=== PATIENT | female | born 2000 | race Caucasian/White ===

== ENCOUNTER → 2022-11-20 | Outpatient (CLI) | payer BC, SELFPAY ==
[2022-11-20 13:05] LABS: Absolute Lymphocyte Count 1.84 X10^3/uL (0.83-4.51); Basophil# 0.04 X10^3/uL; Basophil% 0.4 % (0-1); Eosinophil# 0.55 X10^3/uL; Hematocrit 34.5 % (37-47); Hemoglobin 11.4 g/dL (12.0-15.0); Lymphocyte # 1.84 X10^3/ul (0.83-4.51); Mean Corpuscular Hgb 29.5 pg (27.0-32.0); Mean Corpuscular Volume 89.4 fL (81-99); Monocyte# 0.69 X10^3/uL; Monocyte% 7.5 % (0-10); NRBC Flagged by Analyzer 0 % (0-5); Neutrophil # 6.03 X10^3/uL (2.7-7.7); Neutrophil % 65.6 % (47-70); Platelet Count 223 K/mm3 (150-450); RBC Distribution Width CV 13.2 % (11.6-14.6); RBC Distribution Width SD 42.5 fl (35.1-43.9); Red Blood Count 3.86 M/mm3 (4.2-5.4); White Blood Count 9.2 K/mm3 (4.4-11.0)
== END | disposition home or self-care (01) ==
LOC: PAVLAB 12:54
PROVIDERS: Referring Provider Obstetrics & Gynecology; Visit Provider Obstetrics & Gynecology
DX: Z34.90 Encounter for supervision of normal pregnancy, unspecified, unspecified trimester (principal)
CPT/HCPCS: 36415; 85025

== ENCOUNTER → 2022-11-26 | Outpatient (CLI) | payer BC, SELFPAY ==
--- NOTE | 2022-11-26 12:43 | US_ITS ---
STUDY: SECOND AND THIRD TRIMESTER OBSTETRICAL ULTRASOUND REASON FOR EXAM: Female, 22 years old anatomy scan LMP: April 14, 2022. TECHNIQUE: Transabdominal TECHNICAL QUALITY: Adequate. PRIOR ULTRASOUND: None. FINDINGS: There is a single intrauterine fetus. The fetus is in a cephalic presentation. There is demonstrated cardiac activity with a heart rate of 135 bpm. There is a normal amniotic fluid volume. The largest amniotic fluid pocket measures 6.14 cm. The amniotic fluid index (RANID) is 23.1 cm. The placenta is anterior in location and is not low lying. There are Grade 3 placental changes. The cervix measures 4.3 cm in length. The adnexal regions are not visualized. BIOMETRY: BPD: 8.23 cm: 33 weeks, 1 days HC: 29.72 cm: 32 weeks, 6 days AC: 28.44 cm: 32 weeks, 3 days FL: 6.11 cm: 31 weeks, 5 days CI: 80% FL/BPD: 74% FL/HC: FL/AC: 21% HC/AC: 1.05 age by current US: 32 weeks, 3 days. FELIPE by current US: January 18, 2023. Estimated weight: 1974 grams, +/- 296 grams, 44 %. Age by LMP: 32 weeks, 2 days. FELIPE by LMP: January 19, 2023. ANATOMY: Gender: Female Cranium: Normal lateral ventricles. Normal choroid plexus. Normal cerebellum. Normal cisterna magna. Normal face, nose and lips. Chest: Normal 4-chamber heart. Abdomen/Pelvis: Normal diaphragm. Normal stomach. Normal abdominal wall. Normal cord insertion. Normal 3 vessel cord. Normal kidneys. Normal bladder. Spine: Normal cervical spine. Normal thoracic spine. Normal lumbar spine. Normal sacrum. Extremities: Normal bilateral upper extremities. Normal bilateral lower extremities. US/OB Anatomy Scan IMPRESSION: Single live uterine gestation with a mean gestational age of 32 weeks and 3 days. Electronically Signed: Jayson Rayn MD at 10:27 EST ,
== END | disposition home or self-care (01) ==
LOC: OPUS 12:41 → US 12:44
PROVIDERS: Visit Provider Obstetrics & Gynecology
DX: Z34.90 Encounter for supervision of normal pregnancy, unspecified, unspecified trimester (principal)
CPT/HCPCS: 76805

== ENCOUNTER → 2023-01-03 | Outpatient (CLI) | payer BC, SELFPAY | END | disposition home or self-care (01) | LOC: LABSPEC 15:01 | PROVIDERS: Referring Provider Obstetrics & Gynecology; Visit Provider Obstetrics & Gynecology | DX: Z34.90 Encounter for supervision of normal pregnancy, unspecified, unspecified trimester (principal) | CPT/HCPCS: 87081 ==

== ENCOUNTER 2023-01-26 05:10 | Inpatient (IN) | payer BC, SELFPAY ==
[2023-01-26] VITALS (19 sets, daily range): BP systolic 93–137; BP diastolic 45–91; PULSE 65–113; RESP 13–18; TEMP 36.1–36.9; O2SAT 90–99; BMI 35.4
--- NOTE | 2023-01-26 05:30 | HP.PCM.OB_ITS ---
HPI - General General Date of Admission: 01/26/23 HPI Narrative ZOIFA QUINTEROS, is a 22 y/o @ 41 weeks who presents to L&D via her mother, a sheet metal layout worker named Rosey Avila, after laboring at home for the last 48 hours. Her membranes ruptured at 7:30 am on 01/25/23 and she progressed to anterior lip and has been pushing on the anterior lip for 5 hours at home. She denies fevers or chills at this time. She last ate an apple sauce around dinner time last night. Her mother states that at rupture there was light meconium stained fluid. The patient saw Dr. Shaw 2 times during the for co-care Maternal Data Information FELIPE Calculator Estimated Delivery Date Method Current WG Current Estimate 01/19/23 LMP (Certain) 41w 0d Final FELIPE: 01/19/23 Final FELIPE Source: LMP Gestational age: 41 weeks 0 d PFSH PFSH Home Medications breast pump #1 ea 11/20/22 [Rx Last Taken Unknown] docosahexaenoic acid 200 mg capsule ( DHA) mg PO 11/20/22 [History Last Taken Unknown] Allergy/AdvReac Type Severity Reaction Status Date / Time No Known Allergies Allergy Verified 01/26/23 05:30 Surgical History H/O adenoidectomy Social History household members: spouse current occupational status: employed current occupational exposures/hazards: No sexually active: Yes Smoking Status: Never smoker alcohol intake: former substance use type: does not use seatbelt use: always do you feel safe at home: Yes additional social history: Spouse - Jesus ([email or web address]) History Elective abortions Hx Para 0 Spontaneous abortions Hx # Term Pregnancies Ectopic pregnancies Hx # Pregnancies Multiple births # of living children Visit Details Expected Delivery Route/Plan planning homebirth with Rosey Avila, declines lab testing, had anatomy US. gbs done. declined GCT. discussed BS testing OB Flowsheet Initial Weight: Not Recorded Date -?-?-?-?-?-?-?-?-?-?-?-?- EGA Weight BP Urine Prot -?-?-?-?-?-?-?-?-?-?-?-?- Glucose FHR FuHt Pres Dilation -?-?-?-?-?-?-?-?-?-?-?-?- Effaced St Visit Note 11/20/22 -?-?-?-?-?-?-?-?-?-?-?-?- 31w 3d 206 lb 6 oz 108/69 -?-?-?-?-?-?-?-?-?-?-?-?- 135 32 -?-?-?-?-?-?-?-?-?-?-?-?- SM- patient raul castro her mom Rosey Avila DEM for care, here to establish for cocare in case any additional help needed at delivery. patient had 15 week ultrasound at [facility] for gender and placenta is not previa. she 01/03/23 -?-?-?-?-?-?-?-?-?-?-?-?- 37w 5d 211 lb 2 oz 110/75 Nega tive -?-?-?-?-?-?-?-?-?--?-?-?- Negative 135 39 -?-?-?-?-?-?-?-?-?-?-?-?- Sm- no vb lof go od fm no regular ctx discussed home BS testing for evaluation ROS Constitutional Constitutional: Denies change in weight, fatigue, fever(s), headache(s), poor appetite or weakness Eyes Eyes: Denies blurry vision, change in vision, seeing flashes or spots in vision ENT HEENT: Denies dizziness, headache(s), loss taste/smell or sore throat Cardiovascular Cardiovascular: Denies chest pain, dizziness, dyspnea, irregular heart rhythm, leg edema, palpitations, rapid heart rate or vomiting Respiratory/Chest Respiratory/Chest: Denies chest tightness, cough, dyspnea or breast pain Gastrointestinal Gastrointestinal: Denies abdominal pain, anorexia, constipation, cramping, diarrhea, hemorrhoids, vomiting or weight changes Genitourinary Genitourinary: Denies dysuria, flank pain, genital lesions, genital pain, urinary frequency or urinary urgency Musculoskeletal Musculoskeletal: Denies back pain, difficulty walking, joint pain, limited range of motion, muscle cramps or numbness Integumentary Integumentary: Denies lesions or unusual bruising Neurologic Neurologic: Denies abnormal movements, abnormal speech, dizziness, numbness, seizure-like activity or syncope Psychiatric Psychiatric: Denies anxiety, behavioral changes, change in appetite, change in libido, cognitive impairment, confusion, depression, difficulty concentrating, hallucinations or suicidal thoughts Endocrine Endocrinology: Denies excessive sweating, polydipsia or polyuria Hematologic/Lymphatic Hematologic/Lymphatic: Denies easy bleeding, easy bruising or lymphadenopathy Allergic/Immunologic Allergic/Immunologic: Denies itchy eyes, lip swelling, seasonal rhinorrhea, rhinitis, throat swelling, tongue swelling, eczemia, wheezing or asthma Vital Signs Vital Signs Vital Signs: 01/26/23 05:26 01/26/23 05:26 01/26/23 05:26 Temperature Temperature Source Pulse Rate 110 H Blood Pressure 137/91 H BP Systolic 137 BP Diastolic 91 Pulse Ox 90 01/26/23 05:26 01/26/23 05:26 01/26/23 05:26 Temperature Temperature Source Temporal Pulse Rate 110 H Blood Pressure BP Systolic BP Diastolic Pulse Ox 96 01/26/23 05:26 Temperature 98.2 F Temperature Source Pulse Rate Blood Pressure BP Systolic BP Diastolic Pulse Ox Weight Weight: 206 lb 12.697 oz Body Mass Index (BMI) 35.4 Physical Exam Const alert, oriented x3, no apparent distress and healthy appearing General Appearance: cooperative; Negative for anxious HEENT normocephalic Face and Sinus: normal facial exam Eyes EOMs intact bilaterally and no scleral icterus General Eye: normal appearance of both eyes Neck full ROM and supple Lymph Lymphatic: no lymphadenopathy noted Chest Chest: abnormal inspection of the chest Resp normal respiratory effort Effort and Inspection: able to speak in complete sentences Cardio regular rate GI soft to palpation and non-tender Inspection: gravid Palpation: soft; Negative for tender external exam normal Narrative: Cx: 8 cm/80/+1 station. Back/Spine no CVA tenderness Extremity normal to inspection, full ROM and no clubbing, cyanosis or edema General Extremity: Negative for calf tenderness or edema Skin Lesions: no lesions Rashes: no rashes Psych mental status grossly normal Labs Labs Labs: Hct 34.5 % (37-47) L Hgb 11.4 g/dL (12.0-15.0) L Obstetrics US patient declined labs in the office. She collected her own blood sugars from 37 weeks and were normal at home Assessment & Plan (1) Obesity affecting : COMMENT: reocmmend GCTscreening, patient declined but will check BS at home. (2) : QUALIFIERS: Weeks of gestation: 37 weeks Qualified Code(s): Z3A.37 - 37 weeks gestation of COMMENT: kareemare with Rosey Avila- patients mother. planning home . cbc and home BS checks, declined rest of NOB labs. anatomy scan ordered. plan fu visit at 37-38 weeks with gbs. plan growth US at 41 weeks with twice weekly NSTs if prolonged and IOL at 42 if postdates. 11/27 Nl growth US EFW 1974gms +/-296gms 44%. (3) Supervision of normal : COMMENT: FELIPE 01/19/23 Jesus PLAN: Plan Patient presents IAL, plan at this point is to obtain labs and if no signs of distress will allow epidural + pitocin for a few hours but technically she has already met criteria for failure to progress at home and if any signs of chorioamnionitis present, will need to be sectioned. Pain management: plans epidural. GBS negative but will need abx for prolonged rupture of membranes . Management of any complications: none I have reviewed the [facility] and made any clinically relevant updates. addendum: white count 19, tracing is a category 2 for minimal variability and lac of decelerations after IV hydration and position change. She is having contractions q 2-3 minutes. Recommending primary section for failure to progress in labor.
[2023-01-26 05:34] LABS: Absolute Lymphocyte Count 1.75 X10^3/uL (0.83-4.51); Absolute Neutrophil Count 16.3 X10^3/uL (2.0-7.7); Basophil# 0.04 X10^3/uL; Basophil% 0.2 % (0-1); Eosinophil# 0.03 X10^3/uL; Eosinophils% 0.2 % (0-5); Hematocrit 37.2 % (37-47); Hemoglobin 12.3 g/dL (12.0-15.0); Lymphocyte # 1.75 X10^3/ul (0.83-4.51); Lymphocyte % 8.9 % (19-41); Mean Corp Hgb Conc 33.1 g/dL (32-36); Mean Corpuscular Hgb 28.1 pg (27.0-32.0); Mean Corpuscular Volume 84.9 fL (81-99); Mean Platelet Vol. 12.8 fl (6.2-12.0); Monocyte# 1.32 X10^3/uL; Monocyte% 6.7 % (0-10); NRBC Flagged by Analyzer 0 % (0-5); Neutrophil # 16.29 X10^3/uL (2.7-7.7); Platelet Count 225 K/mm3 (150-450); RBC Distribution Width CV 13.8 % (11.6-14.6); RBC Distribution Width SD 42.3 fl (35.1-43.9); Red Blood Count 4.38 M/mm3 (4.2-5.4); White Blood Count 19.6 K/mm3 (4.4-11.0)
[2023-01-26] MEDS: Sodium Citrate/Citric Acid 30 ML UDC PO (06:06)
[2023-01-26] MEDS: Acetaminophen 500 MG Tablet PO (06:06)
[2023-01-26] MEDS: Cefazolin 2 GM in 0.9% Normal Saline 100 ML IV (06:15)
--- NOTE | 2023-01-26 06:30 | PLAC_PTH ---
PATIENT: ZOFIA QUINTEROS LOC: [facility] U#:[id number] AGE/SX: 22/F ROOM: WP007 RE01/26/[address]: Dr. Ann-Marie Mckenzie DO : 2000 BED: 1 DIS: 01/27/2023 SPEC #: [id number] RECD: 01/26/23 08:56 STATUS: NATASHA EMILEE #: [id number] YUE: 01/26/23 06:[address]: Ann-Marie Mckenzie DEPT: SURGICAL PATHOLOGY RECD BY: Kathia Lawrence Tissues: Placenta, NOS Procedures: Surgery Specimen Level V HEADER OPERATION: Primary section PRE-OP DIAGNOSIS: Rupture of membranes TISSUE SUBMITTED: Placenta MICROSCOPIC DIAGNOSIS Placenta: Placental disc - third trimester placenta (601 gm). - Focal area of intraparenchymal hemorrhage (1.0 cm in greatest dimension). - Focal area of peripheral infarction and calcification (1.0 cm in greatest dimension). - Focal area of calcification maternal surface and also within the body of the placenta. - Increased intervillous and perivillous fibrin deposition. - Increased syncytial knots. Membranes ? pigment laden macrophages consistent with conium staining. - Focal mild acute chorioamnionitis. Umbilical cord - three blood vessels and no pathologic diagnosis. SJ:rg 01/29/2023 COMMENT Case has been reviewed in consultation with Dr. Grider who concurs with the above diagnosis. IDC:AM MICROSCOPIC DESCRIPTION Slides are reviewed. GROSS DESCRIPTION SPECIMEN: PLACENTA / CLINICAL INFORMATION: A. Weight: 3.62 kg B. Gestational Age: 41 weeks C. Sex: Female PLACENTAL WEIGHT (POST FIXATION): 601 gm PLACENTAL DIMENSIONS: 19.9 x 19.0 x 4.0 cm PLACENTAL SHAPE: Usual ovoid PLACENTAL WEIGHT FOR GESTATIONAL AGE: Within >99th percentile MEMBRANES ? Present. Detached fragments of membranes are also noted in the container. A. Insertion: Marginal B. Site of rupture from edge: Distance of rupture cannot be assessed due to fragmentation of membrane. C. Color of membrane: Reagan-green, mucoidy consistent with meconium staining. D. Abnormalities: None UMBILICAL CORD - Present A. Color: Reagan-mackey B. Insertion: Paracentral C. Length: 40.0 cm D. Diameter: 1.5 cm E. Number of vessels: Three F. Abnormalities: None PLACENTAL DISC - Present A. Color of surface: Reagan-mackey B. surface abnormalities: None C. Maternal cotyledons: Intact with minimal tears. Maternal surface shows increased punctate calcification. Focal area of calcification is also noted in the peripheral portion of the placenta. D. Attached retro placental clot: No clot E. Cut surface: Dark red and spongy F. Lesions: Sections reveal one indurated hemorrhagic lesion measuring 1.0 cm in greatest dimension. G. Separate clot: Absent SECTIONS SUBMITTED: 1. Membrane roll 2. Cord, maternal end, peripheral portion of placenta 3. Cord, end, peripheral portion of placenta 4. Placental disc, and maternal surfaces 5. Placental disc, and maternal surfaces 6. Placental disc, and maternal surfaces, lesion SJ:kathleen 01/28/2023 TC:5 CPT: 70767
--- NOTE | 2023-01-26 07:19 | EX.PCM.OBRPT ---
Assessment & Plan (1) Failure to progress in labor: (2) Obesity affecting : COMMENT: reocmmend GCTscreening, patient declined but will check BS at home. (3) : QUALIFIERS: Weeks of gestation: 37 weeks Qualified Code(s): Z3A.37 - 37 weeks gestation of COMMENT: cocare with Rosey Avila- patients mother. planning home . cbc and home BS checks, declined rest of NOB labs. anatomy scan ordered. plan fu visit at 37-38 weeks with gbs. plan growth US at 41 weeks with twice weekly NSTs if prolonged and IOL at 42 if postdates. 11/27 Nl growth US EFW 1974gms +/-296gms 44%. (4) Supervision of normal : COMMENT: FELIPE 01/19/23 Jesus Maternal Data Information FELIPE Calculator Estimated Delivery Date Method Current WG Current Estimate 01/19/23 LMP (Certain) 41w 0d Final FELIPE: 01/19/23 Final FELIPE Source: LMP Gestational age: 41 weeks 0 days Doctor Who Attended Delivery: Cristiane Driver Details Operative Information Date of Procedure: 01/26/23 Pre-Operative Diagnosis: @ 41 weeks, failure to progress, meconium fluid, prolonged rupture of membranes Post-Operative Diagnosis: @ 41 weeks, failure to progress, meconium fluid, prolonged rupture of membranes Classification: CARMELA Procedure Type: low transverse hide inspector and sorter #1: Erik Iyer Type of Anesthesia: Spinal Anesthesiologist: Shelly Chino Antibiotic Given: Ancef 2 grams IV x1 and Zithromax 500 mg/5 mL X1 Estimated Blood Loss: 400cc Findings Description of Procedure: Spinal anesthesia was placed without difficulty. Ayala catheter was placed. The patient was placed in the dorsal supine position with leftward tilt. Patient was prepped and draped in the normal sterile fashion. Pfannenstiel skin incision was made with the scalpel and carried through to the underlying layer of fascia with the scalpel. Fascia was nicked in the midline and the incision extended laterally. The rectus bellies were dissected off superiorly and inferiorly with out complication both sharply and bluntly. The peritoneum was entered digitally. The incision was stretched and a low transverse uterine incision was made with the scalpel. The infant's head was delivered atraumatically followed by the anterior and posterior shoulders without complication the rest of the delivered. The cord was clamped and cut and the was handed off to awaiting nurse. The placenta was delivered spontaneously immediately following and was noted to be intact and have a three-vessel cord. The uterus was exteriorized cleared of all clots and debris, and the incision was closed in a double layer closure using #1 Vicryl, followed y #1 Monocryl. The ovaries and fallopian tubes were noted to be within normal limits. The uterus was returned to the maternal abdomen and gutters were cleared of all clots and debris. The peritoneum was closed with 3-0 Monocryl in a running fashion. Gloves were changed prior to fascial closure. Fascia was closed with 0 PDS in a running fashion. Subcutaneous tissue was copiously irrigated and the skin was closed with 3-0 Monocryl in a subcuticular fashion. Mepilex dressing was applied without complication. Patient was taken to recovery in stable condition. It was discussed with the patient that based on the clinical information obtained during this encounter, combined with her history, at this time I would recommend repeat or for future deliveries if the next baby is smaller than the current baby if further pregnancies are desired. Presentation: Positive for Vertex Time of Membrane Ruptured: 7:30 am 01/25/23 Amniotic Fluid Description: Moderate meconium Placental Delivery Description: Manual Removal Placenta Disposition: Routine to Lab Specimen(s) Sent to Pathology: placenta Cord Vessel Description: 3 Vessels Cord Entanglement: Around neck x 1, loose Infant A Gender: Female (1 minute): 8 (5 minute): 9 Delayed Cord Clamping: Yes Complications Risks of Surgery Discussed w/Patient: Bleeding, Anesthesia Risks, Need for Future C-Sections and Injury to surrounding structure(s) including bowel and bladder Admit VTE Documentation VTE Present on Admission: No VTE Mechan Device Prophylaxis: SCD's VTE Pharm Prophylaxis Ordered: Yes Multi Select Codes Urinary/Genital Urinary/Genital CPT Codes: 49748 Delivery [facility]
--- NOTE | 2023-01-26 07:27 | DCINST_ITS ---
Discharge Instructions Diet Discharge Diet: No restrictions Activity Discharge Activity: May Not Drive (for 2 weeks or while taking narcotic pain medications.), May Shower and May Take a Tub Bath (in 7 days.) May resume sexual activity in: 4-6 weeks Weight Bearing Status: Full weight bearing Lifting Restrictions: 20 pounds Dressing / Incision Call your doctor if your incision/area has: Continuous Slow Oozing, Sudden Increased Bleeding, Increased Pain/ Swelling, Increased Redness and Foul Smelling Discharge Call your doctor if you observe: Fever of 101 or Higher and Using more than 1 pad per hour Suture Line Care: Avoid Pulling/Pushing and Avoid Pinching/Bending Cleanse incision/area with: Soap & Water and Keep Dressing Clean & Dry Follow Up Care Please Follow Up With: Ann-Marie Mckenzie DO When: Call [phone] to make an appointment for an incision check in 1-2 weeks. Test Results: Test results from this visit will be discussed in further detail at your follow- up appointment, if applicable. Discharge Plan Admission Admit Date/Time: 01/26/23 05:10 Attending Provider: Ann-Marie Mckenzie Discharge Orders/Prescriptions Prescriptions: No Action DHA 200 mg capsule PO (DME) breast pump Device See Rx Instructions .MEDSUPPLY Qty: 1 0RF Rx Instructions: As directed
[2023-01-26] MEDS: Oxytocin 15 Units/NS 250ml 15 UNITS/250 ML IV.SOLN 83 UNITS IV (07:35)
[2023-01-26] MEDS: Ketorolac 30 MG/ML Syringe IV ×3 (08:00→22:31)
[2023-01-26 08:55] LABS: HIV - WCH Non-Reactive (Nonreactive); Hepatitis B Surface Antigen Non-Reactive (Nonreactive); Hepatitis C Antibody Non-Reactive (Nonreactive); Rubella IgG Non-Reactive (Nonreactive); Syphilis Antibodies Non-reactive
--- NOTE | 2023-01-26 10:24 | NURSING ---
1015 upon this nurse entering the room- the infant was found to be sleeping in Cristobal arms while Patricio was sleeping; attempted to wake Patricio up and was unable to awaken him; was taken from his arms and placed in the crib beside the mothers bed and father never woke up; Mariel was awakened and we reviewed the safe sleep policy and she verbalized understanding;
[2023-01-26] MEDS: Lactated Ringers 1,000 ML 100 ML IV (10:54)
[2023-01-26] MEDS: Acetaminophen 500 MG Tablet 1000 MG PO ×2 (12:00→17:34)
[2023-01-26] MEDS: Enoxaparin 40 MG/0.4 ML Syringe SC (17:34)
[2023-01-26] MEDS: 0.9% Saline Lock 10 ML Syringe IV (22:31)
--- NOTE | 2023-01-26 23:03 | NURSING ---
pt diamond catheter was removed at 1410 approaching the 6 hour joe this RN tried to get pt to attempt to void. pt unable to void use brian bottle, running the water, etc. this RN suggested getting in the shower for a last attempt at stimulating pt to void. reports that she has voided in the shower and it came out in spurts. this RN will continue to encourage pt to void.
[2023-01-27] MEDS: Acetaminophen 500 MG Tablet 1000 MG PO ×2 (01:25→07:54)
[2023-01-27 04:17] VITALS: BP 100/50; PULSE 82; RESP 16; TEMP 36.4; O2SAT 97
--- NOTE | 2023-01-27 06:20 | PCM.PN.OB ---
Subjective Subjective Patient is laying in bed comfortably without complaints. She states that she slept on an off during the night. Lochia is mild and pain is minimal. She is struggling a bit with breast feeding the baby this am but asking to be discharged to home Objective Data Objective Data Vital Signs: Vital Signs Temp Pulse Resp BP Pulse Ox O2 Del Method 97.5 F L 82 16 100/50 L 97 Room Air 01/27/23 04:17 01/27/23 04:17 01/27/23 04:17 01/27/23 04:17 01/27/23 04:17 01/27/23 04:17 Oxygen Delivery Method Room Air Weight: 206 lb 12.697 oz Body Mass Index (BMI) 35.4 Intake & Output: Intake and Output for Last 24 Hours 01/25/23 01/26/23 01/27/23 23:59 23:59 23:59 Intake Total 1615 / 1615 Output Total 2105 / 2105 600 / 600 Balance -490 / -490 -600 / -600 Lab / Micro Data Result Diagrams: 01/26/23 05:20 Labs: Laboratory Results - last 24 hr 01/26/23 05:20: Syphilis Total Ab Non-reactive, Hep Bs Antigen Non-Reactive, Hepatitis C Antibody Non-Reactive, HIV 1&2 Antibody Non-Reactive, Rubella IgG Antibody Non-Reactive 01/26/23 05:20: Blood Type AB POSITIVE, Antibody Screen NEGATIVE ROS Constitutional Constitutional: Reports systems reviewed and no addt'l complaints, except as documented Cardiovascular Cardiovascular: Denies chest pain, dizziness, dyspnea or irregular heart rhythm Respiratory/Chest Respiratory/Chest: Denies cough, pain on inspiration or shortness of breath at rest Gastrointestinal Gastrointestinal: Denies abdominal pain, nausea or vomiting Genitourinary Genitourinary: Denies burning urination Musculoskeletal Musculoskeletal: Denies muscle cramps, muscle spasms or muscle weakness Neurologic Neurologic: Denies confusion, dizziness, headache(s) or lack of coordination Psychiatric Psychiatric: Denies anxiety, behavioral changes or depression Physical Exam HEENT normocephalic Resp normal respiratory effort and normal air movement GI soft to palpation, non-tender and non-distended Rectal Exam: other Other Details: Incision is clean, dry, and intact no CVA tenderness Extremity normal to inspection General Extremity: edema bilateral (trace ) Assessment & Plan (1) Status post section: PLAN: Plan s/p LTCS PPD # 1 1. routine post care 2. breast feeding- support given 3. rh positive 4. rubella immune 5. plan for dc to home later today
[2023-01-27 07:14] LABS: Hematocrit 30.4 % (37-47); Hemoglobin 9.9 g/dL (12.0-15.0); Mean Corp Hgb Conc 32.6 g/dL (32-36); Mean Corpuscular Hgb 28.6 pg (27.0-32.0); Mean Corpuscular Volume 87.9 fL (81-99); Mean Platelet Vol. 12.7 fl (6.2-12.0); Platelet Count 151 K/mm3 (150-450); RBC Distribution Width CV 13.9 % (11.6-14.6); RBC Distribution Width SD 44.5 fl (35.1-43.9); Red Blood Count 3.46 M/mm3 (4.2-5.4)
[2023-01-27 07:40] VITALS: BP 100/61; PULSE 77; RESP 16; TEMP 36.5; O2SAT 98
[2023-01-27] MEDS: Naproxen 500 MG Tablet PO (08:03)
[2023-01-27 20:13] LABS: Pathology Specimen OB SEE PATHOLOGY REPORT
== END 2023-01-27 11:05 | disposition home or self-care (01) | DRG 788 ==
PROVIDERS: Admitting Provider Obstetrics & Gynecology; Visit Provider Obstetrics & Gynecology
DX: O62.2 Other uterine inertia (principal); E66.8 Other obesity; O99.214 Obesity complicating childbirth; O48.0 Post-term pregnancy; O76 Abnormality in fetal heart rate and rhythm complicating labor and delivery; Z37.0 Single live birth; Z3A.41 41 weeks gestation of pregnancy; O77.0 Labor and delivery complicated by meconium in amniotic fluid; O42.92 Full-term premature rupture of membranes, unspecified as to length of time between rupture and onset of labor
CPT/HCPCS: 59025; 59050; 85025; 85027; 86703; 86762; 86780; 86803; 86850; 86900; 86901; 87340; 88307; 99221; 99252; J7120; A4216; G0378; G0463; J2405

== ENCOUNTER → 2023-01-28 | Day surgery (SDC) | payer BC, SELFPAY ==
--- NOTE | 2023-01-28 14:04 | SUR.PHASEI ---
PT SENT HOME WITH VERBAL TO ALTERNATE NAPROXEN AND TYLENOL OR EXCEDRIN, AND INSTRUCTED TO NOT ALTERNATE NAPROXEN AND IBUPROFEN SHE WAS DOING PREVIOUSLY. INSTRUCTED TO DRINK LOTS OF FLUIDS INCLUDING SOME WITH CAFFEINE IN THEM. PATIENT AND FAMILY VOICED UNDERSTANDING. INSTRUCTED TO CALL BACK IF ANY QUESTIONS. PT AMBULATED OUT THE DOOR, DENIED NEED FOR WHEELCHAIR.
== END | disposition home or self-care (01) ==
PROVIDERS: Referring Provider Anesthesiology; Visit Provider Anesthesiology
PROC: 3E0R3GC Introduction of Other Therapeutic Substance into Spinal Canal, Percutaneous Approach (ICD-10-PCS; CPT 62273; principal; 2023-01-28 13:00)
DX: G97.1 Other reaction to spinal and lumbar puncture (principal)

== ENCOUNTER → 2023-03-12 | Outpatient (CLI) | payer BC, SELFPAY ==
[2023-03-15 19:20] LABS: HPV Reflexed? NOT INDICATED
== END | disposition home or self-care (01) ==
PROVIDERS: Referring Provider Obstetrics & Gynecology; Visit Provider Obstetrics & Gynecology
DX: Z12.4 Encounter for screening for malignant neoplasm of cervix (principal)
CPT/HCPCS: 88175; G0145

== ENCOUNTER → 2025-03-23 | Outpatient (CLI) | payer BC, SELFPAY ==
[2025-03-23 17:01] LABS: Hematocrit 36.2 % (37-47); Hemoglobin 12.1 g/dL (12.0-15.0); Immature Granulocytes Count 0.040 X10^3/uL (0.0-0.0); Mean Corp Hgb Conc 33.4 g/dL (32-36); Mean Corpuscular Volume 88.9 fL (81-99); Mean Platelet Vol. 12.2 fl (6.2-12.0); NRBC Flagged by Analyzer 0 % (0-5); Platelet Count 254 K/mm3 (150-450); RBC Distribution Width CV 11.8 % (11.6-14.6); RBC Distribution Width SD 37.7 fl (35.1-43.9); Red Blood Count 4.07 M/mm3 (4.2-5.4); White Blood Count 9.4 K/mm3 (4.4-11.0)
[2025-03-23 17:37] LABS: HIV Nonreactive (Nonreactive); Hepatitis B Surface Antigen Nonreactive (Nonreactive); Hepatitis C Antibody Nonreactive (Nonreactive); Syphilis Antibodies Nonreactive (Nonreactive)
[2025-03-26 06:07] LABS: Chlamydia By Nucleic Acid AMP Negative (Negative); Gonococcus By Nucleic Acid AMP Negative (Negative)
== END | disposition home or self-care (01) ==
PROVIDERS: Referring Provider Obstetrics & Gynecology; Visit Provider Obstetrics & Gynecology
DX: O09.90 Supervision of high risk pregnancy, unspecified, unspecified trimester (principal); Z3A.00 Weeks of gestation of pregnancy not specified
CPT/HCPCS: 36415; 83036; 85025; 86703; 86762; 86780; 86803; 86850; 86900; 86901; 87077; 87086; 87088; 87340; 87491; 87591

== ENCOUNTER → 2025-08-16 | Outpatient (CLI) | payer BC, SELFPAY ==
[2025-08-16 14:26] LABS: Hematocrit 35.7 % (37-47); Hemoglobin 11.8 g/dL (12.0-15.0); Immature Granulocytes Count 0.080 X10^3/uL (0.0-0.0); Mean Corp Hgb Conc 33.1 g/dL (32-36); Mean Corpuscular Volume 88.6 fL (81-99); Mean Platelet Vol. 12.7 fl (6.2-12.0); NRBC Flagged by Analyzer 0 % (0-5); Platelet Count 194 K/mm3 (150-450); RBC Distribution Width CV 12.3 % (11.6-14.6); RBC Distribution Width SD 39.7 fl (35.1-43.9); Red Blood Count 4.03 M/mm3 (4.2-5.4); White Blood Count 8.5 K/mm3 (4.4-11.0)
[2025-08-16 14:58] LABS: HIV Nonreactive (Nonreactive); Syphilis Antibodies Nonreactive (Nonreactive)
--- OUTSIDE RECORDS SUMMARY | 2025-08-16 18:30 | XMS RPT_ITS | CCD ---
Author Organization [facility] Care Team Providers Care Sr. Manager Name Role Phone Unavailable Primary Care Provider Unavailabl e WENDIE WAGNER Referring Unavailable Galina Williamson DO Primary Care Pro vider GALINA WILLIAMSON Attending Windy vailable GALINA WILLIAMSON Primary Care Windy vailable GALINA WILLIAMSON Attending Windy vailable GALINA WILLIAMSON Primary Care Windy vailable GALINA WILLIAMSON Admitting Windy vailable GALINA WILLIAMSON Primary Care Windy vailable Care Physician, No Primary Primary Care Provider Unavailable Care Physician, No Primary Referring Provider Un available Dr. Celeste Shaw Attending Provider [phone] Care Physician, No Primary Primary Care Provider Unavailable Care Physician, No Primary Referring Provider Un available Dr. Celeste Shaw Attending Provider BETSY WILLIAMSON Primary Care Provider UnavailDr. Ann-Marie Betancourt Admit Provider Dr. Ann-Marie Mckenzie Attending Provider [phone] Dr. Ann-Marie Mckenzie Other Provider Day PLAZA, WILMER Durbin Attending Provider Galina Williamson DO Primary Care Pro vider Care Physician, No Primary Primary Care Provider Unavailable Care Physician, No Primary Referring Provider Un available Dr. Ann-Marie Mckenzie DO Attending Provider Dr. Ann-Marie Mckenzie DO Referring Provider Dr. Celeste Shaw MD Attending Provider ANN-MARIE ALSTON Attending Unavailab GALINA John Primary Care Unavailab le ANN-MARIE ALSTON Referring Unavailab GALINA John Primary Care Unavailab le ANN-MARIE ALSTON Referring Unavailab le ANN-MARIE ALSTON Attending Unavailab le Care Physician, No Primary Primary Care Physicia n Unavailable Lisa Bundy DO, Dr. Jacobsen Attending Physician Colin MCKEON, Dr. Alonso Attending Physician Care Physician, No Primary Referring Unava ilable Liana Modi Attending Unavailable Care Physician, No Primary Primary Care Unava ilable Care Physician, No Primary Referring Unava ilable Care Physician, No Primary Primary Care Unava ilable Carye VelAnn-Marie meadows Attending Unavailabl e Care Physician, No Primary Referring Unava ilable Care Physician, No Primary Primary Care Unava ilable Vande Veldori, Ann-Marie Attending Unavailabl e Lisa Bundy, Ann-Marie Referring Unavailabl e Care Physician, No Primary Primary Care Unava ilable Carye Veldori, Ann-Marie Attending Unavailabl Liana Spence Attending Unavailable Care Physician, No Primary Primary Care Unava ilable Care Physician, No Primary Referring Unava ilable Care Physician, No Primary Referring Unava ilable Liana Modi Attending Unavailable Care Physician, No Primary Primary Care Unava ilable Care Physician, No Primary Referring Unava ilable Care Physician, No Primary Primary Care Unava ilable Carye Niharika, Ann-Marie Attending Unavailabl e Care Physician, No Primary Referring Unava ilable Celeste Shaw Attending Unavailable Care Physician, No Primary Primary Care Unava ilable Medications Current Medications Medication Drug Class(es) Dates Sig (Normalized) Sig (Original) Breast Pump (5 sources) Start: 11-20-2022 Breast Pump Ac tive 0 .MEDSUPPLY November 20, 2022 1:00am As directed Start: 11-20-2022 Breast Pump Ac tive 0 .MEDSUPPLY November 20, 2022 12:00am As directed Calcium Citrate-Vitamin D3 1,000 mg-10 mcg /30 mL liquid (5 sources) Start: 03-22-2025 take 6 tablets by mouth once daily Calcium Citrate-Vitamin D3 1,000 mg-10 mcg /30 mL liquid Active mL PO March 22, 2025 12:00am takes 6 tabs daily (1600mg) daily Complies with drug therapy Start: 03-22-2025 take 6 tablets by mo [facility] once daily Calcium Citrate-Vitamin D3 1,000 mg-10 mcg /30 mL liquid Active mL PO March 22, 2025 12:00am takes 6 tabs daily (1600mg) daily cephalexin 500 mg oral capsule (1 source) Cephalosporin Antibacterial Start: 10-20-2021 End: 10-30-2021 take 1 capsule by mouth three times daily cephALEXin (KEFLEX) 500 MG capsule Indications: Eustachian tube dysfunction, right Take 1 (one) capsule (500 mg total) by mouth 3 (three) times a day for 10 days . 30 capsule 0 10/20/2021 10/30/2021 Active docosahexaenoic acid 200 mg oral capsule (10 sources) Start: 11-20-2022 Docosahexaenoic Acid ( Dha) 200 mg capsule Active mg PO November 20, 2022 1:00am Complies with drug therapy Magnesium (5 sources) Start: 03-22-2025 take 1 tablet by mouth once daily Magnesium 200 mg tablet Active 200 mg PO daily March 22, 2025 12:00am Complies with drug therapy Start: 03-22-2025 take 1 tablet by [facility] once daily Magnesium 200 mg tablet Active 200 mg PO daily March 22, 2025 12:00am pyridoxine hydrochloride 25 mg oral tablet (5 sources) Start: 03-22-2025 take 1 tablet by mouth once daily Pyridoxine (Vitamin B6) 25 mg tablet Active 25 mg PO daily March 22, 2025 12:00am Complies with drug therapy terbinafine 250 mg oral tablet (2 sources) Allylamine Antifungal Start: 12-26-2023 take 1 tablet by mouth once daily terbinafine HCL (LAMISIL) 250 mg tablet Indications: Onychomycosis Take 1 (one) tablet (250 mg total) by mouth daily . 30 tablet 2 12/26/2023 Active vancomycin 125 mg oral capsule (1 source) Glycopeptide Antibacterial Start: 01-11-2022 End: 01-25-2022 take 1 capsule by mouth four times daily vancomycin (VANCOCIN) 125 MG capsule Take 1 (one) capsule (125 mg total) by mouth 4 (four) times a day for 14 days . 56 capsule 0 01/11/2022 01/25/2022 Active Completed/Discontinued Medications Medication Drug Class(es) Dates Sig (Normalized) Sig (Original) acetaminophen 325 mg / oxyCODONE hydrochloride 5 mg oral tablet (8 sources) Opioid Agonist Start: 01-27-2023 End: 02-06-2023 take 1-2 tablets by mouth every four hours as needed for pain Oxycodone-Acetamin ophen (Percocet) 5-325 mg tablet Discontinued 1 {tbl} PO Q4H as needed for pain 10 7 0 January 27, 2023 February 06, 2023 10:30am Status post delivery History of uterine scar from previous surgery 1-2 tabs q 4 hrs as needed for pain Breast Pump device (5 sources) Start: 11-20-2022 End: 03-22-2025 Breast Pump device Discontinued 0 .MEDSUPPLY 1 0 November 20, 2022 1:00am March 22, 2025 2:04pm As directed Ethinyl Estradiol / norgestimate (2 sources) Progestin, Estrogen Start: 05-23-2021 End: 10-20-2021 take 1 tablet by mouth once daily norgestimate-ethin yl estradioL 0.25-35 mg-mcg per tablet Take 1 tablet by mouth daily . 0 05/23/2021 10/20/2021 Discontinued (Patient's Request) Start: 12-12-2020 take 1 tablet by mey th once daily norgestimate-ethinyl estradiol (ORTHO-CYCLEN, 28,) 0.25-35 MG-MCG per tablet Take 1 tablet by mouth daily 3 packet 3 12/12/2020 Active naproxen 500 mg oral tablet (8 sources) Nonsteroidal Anti-inflammatory Drug Start: 01-27-2023 End: 02-06-2023 take 1 tablet by mouth twice daily as needed for pain Naproxen 500 mg tablet Discontinued 500 mg PO TWICE A DAY as needed for pain 30 0 January 27, 2023 12:00am February 06, 2023 10:30am progesterone 50 mg/ml injectable solution (10 sources) Progesterone Start: 03-22-2025 End: 05-31-2025 Progesterone 50 mg/mL oil Discontinued 5 mg IM daily March 22, 2025 2:37pm May 31, 2025 11:25am unsure dosage- states she applies pump full of cream to thigh/ abdomen nightly Start: 03-22-2025 End: 03-22-2025 inject 5 mg by intramuscular injection once daily Progesterone 50 mg/mL oil Discontinued 5 mg IM daily March 22, 2025 12:00am March 22, 2025 2:41pm Problems Active Problems Problem Classification Problem Date Documented Da te Episodic/Chronic Disorders of teeth and jaw (17 sources) Loss of teeth due to extraction; Translations: [Partial loss of teeth, unspecified cause, unspecified class] Onset: 08-03-2025 03-22-2025 Episodic Comment on above: 2022 distress and abnormal forces of labor (11 sources) Failure to progress in labor; Translations: [Other uterine inertia] 01-26-2023 Episodic Mycoses (2 sources) Onychomycosis; Translations: [Tinea unguium] 12-26-2023 Episodic Other aftercare (1 source) Encounter for follow-up examination after completed treatment for conditions other than malignant neoplasm; Translations: [Follow-up examination, following surgery, unspecified] 02-06-2023 Episodic Other complications of (20 sources) Maternal obesity complicating , childbirth and the puerperium, antepartum; Translations: [Obesity complicating , unspecified trimester] 11-20-2022 Chronic Comment on above: reocmmend GCTscreeni ng, patient declined but will check BS at home. Other complications of (12 sources) Obesity complicating , unspecified trimester; Translations: [Obesity complicating , childbirth, or the puerperium, unspecified as to episode of care or not applicable] Onset: 08-03-2025 11-20-2022 Chronic Other complications of (16 sources) High risk ; Translations: [Supervision of high risk , unspecified, unspecified trimester] 03-22-2025 Episodic Comment on above: , FELIPE 09/25/25, PC Robyn Spouse Jesus PRR , FELIPE 09/25/25 , ROSIBEL Carlson Spouse Jesus Other complications of (1 source) Supervision of high risk , unspecified, unspecified trimester; Translations: [Supervision of high risk , unspecified, unspecified trimester] Onset: 08-03-2025 Episodic Other ear and sense organ disorders (2 sources) Otalgia; Translations: [Otalgia, right ear] Episodic Other female genital disorders (1 source) Abnormal uterine bleeding; Translations: [DUB (dysfunctional uterine bleeding)] Chronic Other gastrointestinal disorders (2 sources) Diarrhea; Translations: [Diarrhea, unspecified] Episodic Other and delivery including normal (20 sources) Normal ; Translations: [Encounter for supervision of normal , unspecified, unspecified trimester] 11-20-2022 Episodic Comment on above: FELIPE 01/19/23 hus band Jesus cocare Pt, NIPT w ge nder/carrier- declines cocare with Rosey Abdi oy- patients mother. planning home . cbc and home BS checks, declined rest of NOB labs. anatomy scan ordered. plan fu visit at 37-38 weeks with gbs. plan growth US at 41 weeks with twice weekly NSTs if prolonged and IOL at 42 if postdates. 11/27 Nl growth US EFW 1974gms +/-296gms 44%. cocare Pt, NIPT w ge nder/carrier- declines. Anatomy nl. Otitis media and related conditions (3 sources) Dysfunction of right eustachian tube; Translations: [Other specified disorders of Eustachian tube, right ear] Episodic Residual codes; unclassified (6 sources) History of uterine scar from previous surgery; Translations: [Other postprocedural status] Onset: 08-03-2025 01-27-2023 Episodic Residual codes; unclassified (1 source) 32 weeks gestation of ; Translations: [32 weeks gestation of ] Onset: 08-03-2025 Episodic Residual codes; unclassified (1 source) 30 weeks gestation of ; Translations: [30 weeks gestation of ] Onset: 07-22-2025 Episodic Past or Other Problems Problem Classification Problem Date Documented Da te Episodic/Chronic Residual codes; unclassified (1 source) 17 weeks gestation of ; Translations: [17 weeks gestation of ] Onset: 04-21-2025 Episodic Results Test Name Value Interpretation Reference Range Facility Tin Whiz Machine Operator Office Visit Reporton 08-03-2025 Tin Whiz Machine Operator Office Visit Report [facility] [address], [address] [place] [address] OFFICE VISIT Date of Service: 08/03/25 MR#: [id number] Acct: [id number] Name: MARIEL QUINTEROS Rep #: [id number] : 2000 Provider: LEO Quiñonez ams Age/Sex: 24/F Location: [facility] Status: Signed Intake Vital Signs 07/08/25 13:57 07/22/25 15:12 08/03/25 15:20 08/03/25 15:21 Height 5 ft 4 in 5 ft 4 in 5 ft 4 in 5 ft 4 in Weight: 215 lb 212 lb BMI 36.8 36.3 BP 96/62 112/69 Intake Visit Reasons: 32wk3d ob Sandwich Artist Required: No Is patient in pain?: No Allergies No Known Allergies Allergy (Verified 08/03/25 15:19) Medications ???Medication ???Instructions ???Recorded ???Confirmed ???Type docosahexaenoic acid 200 mg mg PO 11/20/22 08/03/25 History capsule ( DHA) calcium 1,000 mg (citrate)-vit D3 ml PO 03/22/25 08/03/25 History 10 mcg (400 unit)/30 mL oral liquid magnesium 200 mg tablet 200 mg PO QDAY 03/22/25 08/03/25 H istory pyridoxine (vitamin B6) 25 mg 25 mg PO QDAY 03/22/25 08/03/25 Hi story tablet Last Menstrual Period: 09/25/25 Zika: Zika virus screening: Negative : No PFSH PFSH Surgical History H/O adenoidectomy Social History adopted: No household members: spouse and children housing: house number of children: 1 current occupational status: employed 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[employer] current occupational exposures/hazards: No pets and animals: Yes pets and animals: dog(s) history of recent travel: No sexually active: Yes Smoking Status: Never smoker alcohol intake: former details: not while substance use type: does not use caffeine: Yes Type: coffee what type of physical activity do you participate in: walking frequency: 3-4 times per week oj/congregational: [employer]ian seatbelt use: always do you feel safe at home: Yes additional social history: 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 Date Name GA/Weeks Outcome Route Bth Weight Infant Gen Labor Lgth Anesthesia Del Locatn Provider FOB 01/26/23 Robyn 41 live - full term 8lbs 5oz Female 48hrs @ home, 5hrs pushing spinal [facility] Jesus Delivery Date: 01/26/23 Last Updated by: Violeta Chávez laboring at home for 48 hrs. pushed x 5 hours HPI 32wk3d ob Details: MARIEL QUINTEROS is a 24 year old who presents for routine OB visit. OB Visit FELIPE Calculator Estimated Delivery Date Method Current WG Current Estimate 09/25/25 LMP (Certain) 32w 3d Expected Delivery Route/Plan desires TOLAC- patient having cocare with Rosey Avila for visits, epxlained that if she is planning a she needs to plan to have a hospital with us. we do not reocmmend or approve a home this is not considered a safe venue especially because she is 90 minutes away from our hospital and she has a lower chance of a successful TOLAC. I discussed the risks of permanent neurologic injury, hemorrhage, hysterectomy, and loss of life. patient to decide if she wishes to continue cocare patient counseled regarding risks/benefits of trial of labor versus repeat . ACOG/uptodate education given to patient. 45 % likelihood of success per calculator, but may be as low as 10% becuase she was complete an pushed for five hours with no success. TOLAC consent form signed: [] Specific Issue/Plans Covid status: [] Flu vaccine: [] Tdap vaccine: [] Rhogam: [] LARC form signed: [] Problem list reviewed and updated with the most current plan of care details and appropriate orders placed. Relevant counseling for the gestational age provided. Continue routine care and follow up unless otherwise noted in visit notes/problem list details Initial Weight: Not Recorded Date -???-???-???-???-??? -???-???-???-???-??? -???-???- EGA Weight BP Urine Prot -???-???-???-???-??? -???-???-???-???-??? -???-???- Glucose FHR FuHt Pres Dilation -???-???-???-???-??? -???-???-???-???-??? -???-???- Effaced St Visit Note 03/23/25 -???-???-???-???-??? -???-???-???-???-??? -???-???- 13w 3d 205 lb 110/69 -???-???-???-???-??? -???-???-???-???-??? -???-???- 155 -???-???-???-???-??? -???-???-???-???-??? -???-???- JV- CRL cons istent with LMP. pt was a primary section- labored at home and came in after pushing for 5 hours and thick mec. Wants to . 04/21/25 -???-???-???-???-??? -???-???-???-???-??? -???-???- 17w 4d 204 lb 2 (more content not included)... Normal [facility] Tin Whiz Machine Operator Office Visit Reporton 07-22-2025 Tin Whiz Machine Operator Office Visit Report [facility] [address], [address] [place] [address] OFFICE VISIT Date of Service: 07/22/25 MR#: [id number] Acct: [id number] Name: MARIEL QUINTEROS Rep #: [id number] : 2000 Provider: LEO Quiñonez ams Age/Sex: 24/F Location: [facility] Status: Signed Intake Vital Signs 07/08/25 13:57 07/22/25 15:12 Height 5 ft 4 in 5 ft 4 in Weight: 215 lb BMI 36.8 BP 96/62 Intake Visit Reasons: 30wk ob *co-care Chief Complaint: 30wk OB Sandwich Artist Required: No Is patient in pain?: No Allergies No Known Allergies Allergy (Verified 07/22/25 15:13) Medications ???Medication ???Instructions ???Recorded ???Confirmed ???Type docosahexaenoic acid 200 mg mg PO 11/20/22 07/22/25 History capsule ( DHA) calcium 1,000 mg (citrate)-vit D3 ml PO 03/22/25 07/22/25 History 10 mcg (400 unit)/30 mL oral liquid magnesium 200 mg tablet 200 mg PO QDAY 03/22/25 07/22/25 H istory pyridoxine (vitamin B6) 25 mg 25 mg PO QDAY 03/22/25 07/22/25 Hi story tablet Last Menstrual Period: 09/25/25 : No Have you fallen in the past year?: No PFSH PFSH Surgical History H/O adenoidectomy Social History adopted: No household members: spouse and children housing: house number of children: 1 current occupational status: employed 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[employer] current occupational exposures/hazards: No pets and animals: Yes pets and animals: dog(s) history of recent travel: No sexually active: Yes Smoking Status: Never smoker alcohol intake: former details: not while substance use type: does not use caffeine: Yes Type: coffee what type of physical activity do you participate in: walking frequency: 3-4 times per week oj/congregational: [employer]ian seatbelt use: always do you feel safe at home: Yes additional social history: 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 Date Name GA/Weeks Outcome Route Bth Weight Infant Gen Labor Lgth Anesthesia Del Locatn Provider FOB 01/26/23 Robyn 41 live - full term 8lbs 5oz Female 48hrs @ home, 5hrs pushing spinal [facility] Lee Delivery Date: 01/26/23 Last Updated by: Violeta Chávez laboring at home for 48 hrs. pushed x 5 hours HPI 30wk ob *co-care Details: MARIEL QUINTEROS is a 24 year old who presents for routine OB visit. OB Visit FELIPE Calculator Estimated Delivery Date Method Current WG Current Estimate 09/25/25 LMP (Certain) 30w 5d Expected Delivery Route/Plan desires TOLAC- patient having cocare with Rosey Avila for visits, epxlained that if she is planning a she needs to plan to have a hospital with us. we do not reocmmend or approve a home this is not considered a safe venue especially because she is 90 minutes away from our hospital and she has a lower chance of a successful TOLAC. I discussed the risks of permanent neurologic injury, hemorrhage, hysterectomy, and loss of life. patient to decide if she wishes to continue cocare patient counseled regarding risks/benefits of trial of labor versus repeat . ACOG/uptodate education given to patient. 45 % likelihood of success per calculator, but may be as low as 10% becuase she was complete an pushed for five hours with no success. TOLAC consent form signed: [] Specific Issue/Plans Covid status: [] Flu vaccine: [] Tdap vaccine: [] Rhogam: [] LARC form signed: [] Problem list reviewed and updated with the most current plan of care details and appropriate orders placed. Relevant counseling for the gestational age provided. Continue routine care and follow up unless otherwise noted in visit notes/problem list details Initial Weight: Not Recorded Date -???-???-???-???-??? -???-???-???-???-??? -???-???- EGA Weight BP Urine Prot -???-???-???-???-??? -???-???-???-???-??? -???-???- Glucose FHR FuHt Pres Dilation -???-???-???-???-??? -???-???-???-???-??? -???-???- Effaced St Visit Note 03/23/25 -???-???-???-???-??? -???-???-???-???-??? -???-???- 13w 3d 205 lb 110/69 -???-???-???-???-??? -???-???-???-???-??? -???-???- 155 -???-???-???-???-??? -???-???-???-???-??? -???-???- JV- CRL cons istent with LMP. pt was a primary section- labored at home and came in after pushing for 5 hours and thick mec. Wants to . 04/21/25 -???-???-???-???-??? -???-???-???-???-??? -???-???- 17w 4d 204 lb 2 oz 117/75 Negative -???-???-???-???-? (more content not included)... Normal [facility] - Chemistry and C hemistry - challengeOrdered By: Ann-Marie Bundy on 07-08-2025 Glucose Ql (U) Negative [facility] - UrinalysisOrder ed By: Ann-Marie Bundy on 07-08-2025 Protein Ql (U) Negative [facility] Tin Whiz Machine Operator Office Visit Reporton 07-08-2025 Tin Whiz Machine Operator Office Visit Report [address], [address] [place] [address] OFFICE VISIT Date of Service: 07/08/25 MR#: [id number] Acct: [id number] Name: MARIEL QUINTEROS Rep #: [id number] : 2000 Provider: Dr. Ann-Marie Syed DO Age/Sex: 24/F [place] [facility] Status: Signed Intake Vital Signs 05/31/25 11:26 07/08/25 13:57 07/08/25 13:57 Height 5 ft 4 in 5 ft 4 in 5 ft 4 in Weight: 208 lb 7 oz BMI 35.7 BP 111/69 Intake Visit Reasons: 28 WK 5D OB *co-care *Moved from 06/28 per pt Sandwich Artist Required: No Is patient in pain?: No Allergies No Known Allergies Allergy (Verified 07/08/25 13:57) Medications ???Medication ???Instructions ???Recorded ???Confirmed ???Type docosahexaenoic acid 200 mg mg PO 11/20/22 07/08/25 History capsule ( DHA) calcium 1,000 mg (citrate)-vit D3 ml PO 03/22/25 07/08/25 History 10 mcg (400 unit)/30 mL oral liquid magnesium 200 mg tablet 200 mg PO QDAY 03/22/25 07/08/25 H istory pyridoxine (vitamin B6) 25 mg 25 mg PO QDAY 03/22/25 07/08/25 Hi story tablet Last Menstrual Period: 09/25/25 Zika: Zika virus screening: Negative : No PFSH PFSH Surgical History H/O adenoidectomy Social History adopted: No household members: spouse and children housing: house number of children: 1 current occupational status: employed 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[employer] current occupational exposures/hazards: No pets and animals: Yes pets and animals: dog(s) history of recent travel: No sexually active: Yes Smoking Status: Never smoker alcohol intake: former details: not while substance use type: does not use caffeine: Yes Type: coffee what type of physical activity do you participate in: walking frequency: 3-4 times per week oj/congregational: [employer] seatbelt use: always do you feel safe at home: Yes additional social history: 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 Date Name GA/Weeks Outcome Route Bth Weight Gen Labor Lgth Anesthesia Del Rodatn Provider FOB 01/26/23 Robyn 41 live - full term 8lbs 5oz Female 48hrs @ home, 5hrs pushing spinal [facility] Lee Delivery Date: 01/26/23 Last Updated by: Violeta Chávez laboring at home for 48 hrs. pushed x 5 hours HPI 28 WK 5D OB *co-care *Moved from 06/28 per pt Details: MARIEL QUINTEROS is a 24 year old who presents for routine OB visit. OB Visit FELIPE Calculator Estimated Delivery Date Method Current WG Current Estimate 09/25/25 LMP (Certain) 28w 5d Expected Delivery Route/Plan desires TOLAC- patient having cocare with Rosey Avila for visits, epxlained that if she is planning a she needs to plan to have a hospital with us. we do not reocmmend or approve a home this is not considered a safe venue especially because she is 90 minutes away from our hospital and she has a lower chance of a successful TOLAC. I discussed the risks of permanent neurologic injury, hemorrhage, hysterectomy, and loss of life. patient to decide if she wishes to continue cocare patient counseled regarding risks/benefits of trial of labor versus repeat . ACOG/uptodate education given to patient. 45 % likelihood of success per calculator, but may be as low as 10% becuase she was complete an pushed for five hours with no success. TOLAC consent form signed: [] Specific Issue/Plans Covid status: [] Flu vaccine: [] Tdap vaccine: [] Rhogam: [] LARC form signed: [] Problem list reviewed and updated with the most current plan of care details and appropriate orders placed. Relevant counseling for the gestational age provided. Continue routine care and follow up unless otherwise noted in visit notes/problem list details Initial Weight: Not Recorded Date -???-???-???-???-??? -???-???-???-???-??? -???-???- EGA Weight BP Urine Prot -???-???-???-???-??? -???-???-???-???-??? -???-???- Glucose FHR FuHt Pres Dilation -???-???-???-???-??? -???-???-???-???-??? -???-???- Effaced St Visit Note 03/23/25 -???-???-???-???-??? -???-???-???-???-??? -???-???- 13w 3d 205 lb 110/69 -???-???-???-???-??? -???-???-???-???-??? -???-???- 155 -???-???-???-???-??? -???-???-???-???-??? -???-???- JV- CRL cons istent with LMP. pt was a primary section- labored at home and came in after pushing for 5 hours and thick mec. Wants to . 04/21/25 -???-???-???-???-??? -???-??? (more content not included)... 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 Celeste cameron MD Age/Sex: 24/F [place] [facility] [place]: Signed Intake Vital Signs 04/21/25 13:44 05/31/25 11:26 Height 5 ft 4 in 5 ft 4 in Weight: 203 lb 1 oz BMI 34.8 BP 119/77 Intake Visit Reasons: 22wk OB *reschedule* - Co-care Sandwich Artist Required: No Is patient in pain?: No Allergies No Known Allergies Allergy (Verified 05/31/25 11:24) Medications ???Medication ???Instructions ???Recorded ???Confirmed ???Type docosahexaenoic acid 200 mg mg PO 11/20/22 05/31/25 History capsule ( DHA) calcium 1,000 mg (citrate)-vit D3 ml PO 03/22/25 05/31/25 History 10 mcg (400 unit)/30 mL oral liquid magnesium 200 mg tablet 200 mg PO QDAY 03/22/25 05/31/25 H istory pyridoxine (vitamin B6) 25 mg 25 mg PO QDAY 03/22/25 05/31/25 Hi story tablet Last Menstrual Period: 09/25/25 Zika: Zika virus screening: Negative : No PFSH PFSH Surgical History H/O adenoidectomy Social History adopted: No household members: spouse and children housing: house number of children: 1 current occupational status: employed 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[employer] current occupational exposures/hazards: No pets and animals: Yes pets and animals: dog(s) history of recent travel: No sexually active: Yes Smoking Status: Never smoker alcohol intake: former details: not while substance use type: does not use caffeine: Yes Type: coffee what type of physical activity do you participate in: walking frequency: 3-4 times per week oj/congregational: Presybeterian seatbelt use: always do you feel safe at home: Yes additional social history: 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 Date Name GA/Weeks Outcome Route Bth Weight Infant Gen Labor Lgth Anesthesia Del Locatn Provider FOB 01/26/23 Robyn 41 live - full term 8lbs 5oz Female 48hrs @ home, 5hrs pushing spinal [facility] Delivery Date: 01/26/23 Last Updated by: Violeta Blackwellion laboring at home for 48 hrs. pushed x 5 hours HPI 22wk OB *reschedule* - Co-care Details: MARIEL QUINTEROS is a 24 year old who presents for routine OB visit. OB Visit FELIPE Calculator Estimated Delivery Date Method Current WG Current Estimate 09/25/25 LMP (Certain) 23w 3d Expected Delivery Route/Plan desires TOLAC- patient having cocare with Rosey Avila for visits, epxlained that if she is planning a she needs to plan to have a hospital with us. we do not reocmmend or approve a home this is not considered a safe venue especially because she is 90 minutes away from our hospital and she has a lower chance of a successful TOLAC. I discussed the risks of permanent neurologic injury, hemorrhage, hysterectomy, and loss of life. patient to decide if she wishes to continue cocare patient counseled regarding risks/benefits of trial of labor versus repeat . ACOG/uptodate education given to patient. 45 % likelihood of success per calculator, but may be as low as 10% becuase she was complete an pushed for five hours with no success. TOLAC consent form signed: [] Specific Issue/Plans Covid status: [] Flu vaccine: [] Tdap vaccine: [] Rhogam: [] LARC form signed: [] Problem list reviewed and updated with the most current plan of care details and appropriate orders placed. Relevant counseling for the gestational age provided. Continue routine care and follow up unless otherwise noted in visit notes/problem list details Initial Weight: Not Recorded Date -???-???-???-???-??? -???-???-???-???-??? -???-???- EGA Weight BP Urine Prot -???-???-???-???-??? -???-???-???-???-??? -???-???- Glucose FHR FuHt Pres Dilation -???-???-???-???-??? -???-???-???-???-??? -???-???- Effaced St Visit Note 03/23/25 -???-???-???-???-??? -???-???-???-???-??? -???-???- 13w 3d 205 lb 110/69 -???-???-???-???-??? -???-???-???-???-??? -???-???- 155 -???-???-???-???-??? -???-???-???-???-??? -???-???- JV- CRL cons istent with LMP. pt was a primary section- labored at home and came in after pushing for 5 hours and thick mec. Wants to . 04/21/25 -???-???-???-???-??? -???-???-???-???-??? -???-???- 17w 4d 204 lb 2 oz 117/75 Negative (more content not included)... 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 Ann-Marie Syed DO Age/Sex: 24/F [place] [facility] [place]: Signed Intake Vital Signs 03/12/23 10:23 03/23/25 14:31 04/21/25 13:43 04/21/25 13:44 Height 5 ft 4 in 5 ft 4 in 5 ft 4 in 5 ft 4 in Weight: 204 lb 2 oz BMI 35.0 BP 117/75 Intake Visit Reasons: 17wk OB *co-care Sandwich Artist Required: No Is patient in pain?: No Allergies No Known Allergies Allergy (Verified 04/21/25 13:43) Medications ???Medication ???Instructions ???Recorded ???Confirmed ???Type docosahexaenoic acid 200 mg mg PO 11/20/22 04/21/25 History capsule ( DHA) calcium 1,000 mg (citrate)-vit D3 ml PO 03/22/25 04/21/25 History 10 mcg (400 unit)/30 mL oral liquid magnesium 200 mg tablet 200 mg PO QDAY 03/22/25 04/21/25 H istory progesterone 50 mg/mL 5 mg IM QDAY 03/22/25 04/21/25 His tory intramuscular oil pyridoxine (vitamin B6) 25 mg 25 mg PO QDAY 03/22/25 04/21/25 Hi story tablet Last Menstrual Period: 09/25/25 Zika: Zika virus screening: Negative : No PFSH PFSH Surgical History H/O adenoidectomy Social History adopted: No household members: spouse and children housing: house number of children: 1 current occupational status: employed 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[employer] current occupational exposures/hazards: No pets and animals: Yes pets and animals: dog(s) history of recent travel: No sexually active: Yes Smoking Status: Never smoker alcohol intake: former details: not while substance use type: does not use caffeine: Yes Type: coffee what type of physical activity do you participate in: walking frequency: 3-4 times per week oj/congregational: [employer]ian seatbelt use: always do you feel safe at home: Yes additional social history: 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 Date Name GA/Weeks Outcome Route Bth Weight Gen Labor Lgth Anesthesia Del Locatn Provider FOB 01/26/23 Robyn 41 live - full term 8lbs 5oz Female 48hrs @ home, 5hrs pushing spinal [facility] Delivery Date: 01/26/23 Last Updated by: Violeta Chávez laboring at home for 48 hrs. pushed x 5 hours HPI 17wk OB *co-care Details: MARIEL QUINTEROS is a 24 year old who presents for routine OB visit. OB Visit FELIPE Calculator Estimated Delivery Date Method Current WG Current Estimate 09/25/25 LMP (Certain) 17w 4d Expected Delivery Route/Plan patient counseled regarding risks/benefits of trial of labor versus repeat . ACOG/uptodate education given to patient. 45 % likelihood of success per calculator TOLAC consent form signed: [] Specific Issue/Plans Covid status: [] Flu vaccine: [] Tdap vaccine: [] Rhogam: [] LARC form signed: [] Problem list reviewed and updated with the most current plan of care details and appropriate orders placed. Relevant counseling for the gestational age provided. Continue routine care and follow up unless otherwise noted in visit notes/problem list details Initial Weight: Not Recorded Date -???-???-???-???-??? -???-???-???-???-??? -???-???- EGA Weight BP Urine Prot -???-???-???-???-??? -???-???-???-???-??? -???-???- Glucose FHR FuHt Pres Dilation -???-???-???-???-??? -???-???-???-???-??? -???-???- Effaced St Visit Note 03/23/25 -???-???-???-???-??? -???-???-???-???-??? -???-???- 13w 3d 205 lb 110/69 -???-???-???-???-??? -???-???-???-???-??? -???-???- 155 -???-???-???-???-??? -???-???-???-???-??? -???-???- JV- CRL cons istent with LMP. pt was a primary section- labored at home and came in after pushing for 5 hours and thick mec. Wants to . 04/21/25 -???-???-???-???-??? -???-???-???-???-??? -???-???- 17w 4d 204 lb 2 oz 117/75 Negative -???-???-???-???-??? -???-???-???-???-??? -???-???- Negative 151 -???-???-???-???-??? -???-???-???-???-??? -???-???- JV- no lof, vaginal bleeding, or cramping. has some allergy symptoms. plans to find out the gender at the anatomy scan from [facility] 05/20. ACOG First Trimester First Trimester: Desire for , Alcohol, Tobacco Cessation, Illicit/Recreational Drug/Substance Use, Intimate Partner Violence, Barriers to care, Unstable Housing, Communication Barriers, (more content not included)... Normal [facility] Urine Cultureon 03-27-2025 URC Mixed Gram Positive Organisms [place] Count 25,000-50,000 MIXC Mixed contaminants. Submit a new specimen if indicated. Normal [facility] Comment on above: Performed By: #### M 100.2200, L7000.1800 ####[facility] [id number] [place], [address] Chlamydia/GC LINNEA aptimaon CHLAMY,NUC ACID Negative Normal Negative [facility] Comment on above: Performed By: #### M 100.2200, L7000.1800 ####[facility] [address] [place], [address] GC BY NUC ACID Negative Normal Negative [facility] Comment on above: Result Comment: Perf ormed at: =G - [facility] [address] [id number] [employer] Portal Developer: Tova Whitley MD, Phone: [phone] Performed By: #### M 100.2200, L7000.1800 ####[facility] [id number] [place], [place], [address] Absolute lymphocyte countOrd ered By: Ann-Marie Bundy on 03-23-2025 Lymphocytes Auto (Unsp spec) [#/Vol] 2.07 10*3/uL 0.83-4.51 [facility] Absolute neutrophil countOrd ered By: Ann-Marie Bundy on 03-23-2025 Neutrophils (Bld) [#/Vol] 6.2 10*3/uL 2.0-7.7 [facility] Automated lymphocyte count a s percentage of total leukocytesOrdered By: Ann-Marie Bundy on 03-23-2025 Lymphocytes/100 WBC Auto (Unsp spec) 22.0 % 19-41 [facility] Basophil percentageOrdered B y: Ann-Marie Bundy on 03-23-2025 Basophils/100 WBC (Bld) 0.5 % 0-1 [facility] CBC W/Diff, Automatedon 07-0 Absolute Lymph 2.07 X10 3/uL Normal 0.83-4.51 [facility] Comment on above: Performed By: #### L 501.9985, L3890.6102, L3890.6301, L509.8002, BTS, L3890.6006, L100.0100, L509.4006 #### [facility] [address] [place], [address] Absolute Neut 6.2 X10 3/uL Normal 2.0-7.7 [facility] Comment on above: Performed By: #### L 501.9985, L3890.6102, L3890.6301, L509.8002, BTS, L3890.6006, L100.0100, L509.4006 #### [facility] [address] [place], [address] Basophils/100 WBC (Bld) 0.5 % Normal 0-1 [facility] Comment on above: Performed By: #### L 501.9985, L3890.6102, L3890.6301, L509.8002, BTS, L3890.6006, L100.0100, L509.4006 #### [facility] [address] [place], [address] Eosinophils/100 WBC (Bld) 4.7 % Normal 0-5 [facility] Comment on above: Performed By: #### L 501.9985, L3890.6102, L3890.6301, L509.8002, BTS, L3890.6006, L100.0100, L509.4006 #### [facility] [address] [place], [address] Erythrocyte distribution width (RBC) [Ratio] 11.8 % Normal 11.6-14.6 [facility] Comment on above: Performed By: #### L 501.9985, L3890.6102, L3890.6301, L509.8002, BTS, L3890.6006, L100.0100, L509.4006 #### [facility] [address] [place], [address] Hematocrit (Bld) [Volume fraction] 36.2 % Low 37-47 [facility] Comment on above: Performed By: #### L 501.9985, L3890.6102, L3890.6301, L509.8002, BTS, L3890.6006, L100.0100, L509.4006 #### [facility] [address] [place], [address] Hemoglobin (Bld) [Mass/Vol] 12.1 g/dL Normal 12.0-15.0 [facility] Comment on above: Performed By: #### L 501.9985, L3890.6102, L3890.6301, L509.8002, BTS, L3890.6006, L100.0100, L509.4006 #### [facility] [address] [place], [address] IG% 0.400 Normal 0.0-0.9 [facility] Comment on above: Result Comment: IG% - Immature Granulocytes (promyelocytes, myelocytes and metamyelocytes) > 1% indicates that a LEFT SHIFT is Present. Performed By: #### L 501.9985, L3890.6102, L3890.6301, L509.8002, BTS, L3890.6006, L100.0100, L509.4006 #### [facility] [address] [place], [address] Lymphocytes/100 WBC (Bld) 22.0 % Normal 19-41 [facility] Comment on above: Performed By: #### L 501.9985, L3890.6102, L3890.6301, L509.8002, BTS, L3890.6006, L100.0100, L509.4006 #### [facility] [address] [place], [address] MCH (RBC) [Entitic mass] 29.7 pg Normal 27.0-32.0 [facility] Comment on above: Performed By: #### L 501.9985, L3890.6102, L3890.6301, L509.8002, BTS, L3890.6006, L100.0100, L509.4006 #### [facility] [address] [place], [address] MCHC (RBC) [Mass/Vol] 33.4 g/dL Normal 32-36 [facility] Comment on above: Performed By: #### L 501.9985, L3890.6102, L3890.6301, L509.8002, BTS, L3890.6006, L100.0100, L509.4006 #### [facility] [address] [facility] [place], [address] MCV (RBC) [Entitic vol] 88.9 fL Normal 81-99 [facility] Comment on above: Performed By: #### L 501.9985, L3890.6102, L3890.6301, L509.8002, BTS, L3890.6006, L100.0100, L509.4006 #### [facility] [address] [place], [address] Monocytes/100 WBC (Bld) 6.0 % Normal 0-10 [facility] Comment on above: Performed By: #### L 501.9985, L3890.6102, L3890.6301, L509.8002, BTS, L3890.6006, L100.0100, L509.4006 #### [facility] [address] [place], [address] Neutrophils/100 WBC (Bld) 66.4 % Normal 47-70 [facility] Comment on above: Performed By: #### L 501.9985, L3890.6102, L3890.6301, L509.8002, BTS, L3890.6006, L100.0100, L509.4006 #### [facility] [address] [place], [address] Nucleated RBC (Bld) [#/Vol] 0 10*3/uL Normal 0-5 [facility] Comment on above: Performed By: #### L 501.9985, L3890.6102, L3890.6301, L509.8002, BTS, L3890.6006, L100.0100, L509.4006 #### [facility] [address] [place], [address] Platelet mean volume (Bld) [Entitic vol] 12.2 fL High 6.2-12.0 [facility] Comment on above: Performed By: #### L 501.9985, L3890.6102, L3890.6301, L509.8002, BTS, L3890.6006, L100.0100, L509.4006 #### [facility] [address] [place], [address] Platelets (Bld) [#/Vol] 254 10*3/uL Normal 150-450 [facility] Comment on above: Performed By: #### L 501.9985, L3890.6102, L3890.6301, L509.8002, BTS, L3890.6006, L100.0100, L509.4006 #### [facility] [address] [place], [address] RBC (Bld) [#/Vol] 4.07 10*6/uL Low 4.2-5.4 [facility] Comment on above: Performed By: #### L 501.9985, L3890.6102, L3890.6301, L509.8002, BTS, L3890.6006, L100.0100, L509.4006 #### [facility] [address] [place], [address] RDW SD 37.7 fl Normal 35.1-43.9 [facility] Comment on above: Performed By: #### L 501.9985, L3890.6102, L3890.6301, L509.8002, BTS, L3890.6006, L100.0100, L509.4006 #### [facility] [address] [facility] [place], [address] WBC (Bld) [#/Vol] 9.4 10*3/uL Normal 4.4-11.0 [facility] Comment on above: Performed By: #### L 501.9985, L3890.6102, L3890.6301, L509.8002, BTS, L3890.6006, L100.0100, L509.4006 #### [facility] [address] [facility] [place], [place], [id number] Chlamydia trachomatis rRNA d etection by probe and target amplification methodOrdered By: An-nMarie Bundy on 03-23-2025 C. trachomatis rRNA LINNEA+probe Ql (Unsp spec) Negative Negative [facility] Eosinophil percentageOrdered By: Ann-Marie Bundy on 03-23-2025 Eosinophils/100 WBC (Bld) 4.7 % 0-5 [facility] Erythrocyte distribution wid th ratioOrdered By: Ann-Marie Bundy on 03-23-2025 Erythrocyte distribution width (RBC) [Ratio] 11.8 % 11.6-14.6 [facility] Erythrocyte distribution wid th standard deviationOrdered By: Ann-Marie Niharika on 03-23-2025 Erythrocyte distribution width (RBC) [Ratio] 37.7 fl 35.1-43.9 [facility] HIVon 03-23-2025 HIV Non-Reactive Normal Nonreactive [facility] Comment on above: Result Comment: Non- Reactive Reactive Repeatedly reactive samples must be confirmed according to CDC recommended confirmatory algorithms. The subresults for either HIVAG or AHIV can be used as an aid in the selection of the confirmation algorithm for reactive samples. Send out specimens with Reactive results to [facility] for confirmation. Order the HIV antibody detection and differentiation: [id number] Performed By: #### L 501.9985, L3890.6102, L3890.6301, L509.8002, BTS, L3890.6006, L100.0100, L509.4006 #### [facility] [address] [place], [address] Hematocrit Auto (Bld) [Volum e fraction]Ordered By: Ann-Marie Bundy on 03-23-2025 Hematocrit (Bld) [Volume fraction] 36.2 % Low 37-47 [facility] Hemoglobin A1con 03-23-2025 HbA1c (Bld) [Mass fraction] 5.4 % Normal <=5.6 [facility] Comment on above: Result Comment: Norm al < 5.7 % Prediabetic 5.7 - 6.4 % Diabetic >or= 6.5 % Please note range changes. Performed By: #### L 501.9985, L3890.6102, L3890.6301, L509.8002, BTS, L3890.6006, L100.0100, L509.4006 #### [facility] [address] [place], [address] Hemoglobin A1c percentageOrd ered By: Ann-Marie Bundy on 03-23-2025 HbA1c (Bld) [Mass fraction] 5.4 % <5.7 [facility] Comment on above: Normal < 5.7 % Predi abetic 5.7 - 6.4 % Diabetic >or= 6.5 % Please note range changes. Hemoglobin measurementOrdere d By: Ann-Marie Bundy on 03-23-2025 Hemoglobin (Bld) [Mass/Vol] 12.1 g/dL 12.0-15.0 [facility] Hepatitis C Antibodyon 03-23 Hepatitis C Ab Non-Reactive Normal Nonreactive [facility] Comment on above: Result Comment: Reac tive: Presumptive evidence of antibodies to HCV. Follow CDC recommendations for supplemental testing. Non-Reactive: Antibodies to HCV were not detected; does not exclude the possibility of exposure to HCV Reactive Results are presumptive evidence of antibodies to HCV. Follow CDC recommendations for supplemental testing. Order confirmation testing: HCV Quant by PCR testing - HCVPCR #[id number] Non Reactive: < 0.8 Equivocal: >/= 0.8 to < 1.0 Reactive: >/= 1.0 The CDC requires that a reactive/equivocal HCV antibody result be sent out for confirmation. HCV Quant by PCR testing. Performed By: #### L 501.9985, L3890.6102, L3890.6301, L509.8002, BTS, L3890.6006, L100.0100, L509.4006 #### [facility] [address] [facility] [place], [place], [id number] Immature granulocytes/100 WB C Auto (Bld)Ordered By: Ann-Marie Bundy on 03-23-2025 Immature granulocytes/100 WBC (Bld) 0.400 % 0.0-0.9 [facility] Comment on above: IG% - Immature Granu locytes (promyelocytes, myelocytes and metamyelocytes) > 1% indicates that a LEFT SHIFT is Present. L3890.6102on 03-23-2025 HEP B Surf Ag Non-Reactive Normal Nonreactive [facility] Comment on above: Result Comment: Reac tive: Presumptive evidence of HBV. Repeatedly reactive samples must be confirmed using a neutralization test ([employer] HBsAg Confirmatory Test) Non-Reactive: HBsAg not detected; does not exclude the possibility of exposure to HBV Performed By: #### L 501.9985, L3890.6102, L3890.6301, L509.8002, BTS, L3890.6006, L100.0100, L509.4006 #### [facility] [address] [place], [address] L509.4006on 03-23-2025 Rubella IgG Non-Reactive Normal Nonreactive [facility] Comment on above: Result Comment: Anti body Result: Interpretation Non-Reactive: Non-Immune Reactive: Immune The following results were obtained with the Elecsys Rubella IgG assay. Results from assays of other manufacturers cannot be used interchangeably. Performed By: #### L 501.9985, L3890.6102, L3890.6301, L509.8002, BTS, L3890.6006, L100.0100, L509.4006 ####[facility] [id number] [place], [address] Laboratory - Microbiology an d Antimicrobial susceptibilityOrdered By: Ann-Marie Bundy on 03-23-2025 HBV surface Ag Ql (S) Non-Reactive Nonreactive [facility] Comment on above: Reactive: Presumptiv e evidence of HBV. Repeatedly reactive samples must be confirmed using a neutralization test (Elecsys HBsAg Confirmatory Test)Non-Reactive: HBsAg not detected; does not exclude the possibility of exposure to HBV MCV (mean corpuscular volume ) determinationOrdered By: Ann-Marie Bundy on 03-23-2025 MCV (RBC) [Entitic vol] 88.9 fL 81-99 [facility] Mean corpuscular hemoglobin (MCH) determinationOrdered By: Ann-Marie Bundy on 03-23-2025 MCH (RBC) [Entitic mass] 29.7 pg 27.0-32.0 [facility] Mean corpuscular hemoglobin concentration (MCHC) determinationOrdered By: Ann-Marie Bundy on 03-23-2025 MCHC (RBC) [Mass/Vol] 33.4 g/dL 32-36 [facility] Mean platelet volume determi nationOrdered By: Ann-Marie Bundy on 03-23-2025 Platelet mean volume (Bld) [Entitic vol] 12.2 fL High 6.2-12.0 [facility] Monocyte percentageOrdered B y: Ann-Marie Bundy on 03-23-2025 Monocytes/100 WBC (Bld) 6.0 % 0-10 [facility] Neisseria gonorrhoeae nuclei c acid detection by amplified probe techniqueOrdered By: Ann-Marie Bundy on 03-23-2025 N. gonorrhoeae DNA LINNEA+probe Ql (Unsp spec) Negative Negative [facility] Comment on above: Performed at: =[address] [id number] Director: Tova Whitley MD, Phone: [phone] Neutrophil percentageOrdered By: Ann-Marie Bundy on 03-23-2025 Neutrophils/100 WBC (Bld) 66.4 % 47-70 [facility] No Panel InformationOrdered By: Ann-Marie Bundy on 03-23-2025 HIV (1&2) Antibody Non-Reactive Nonreactive [facility] Comment on above: Non-ReactiveReactive Repeatedly reactive samples must be confirmed according to CDC recommended confirmatory algorithms. 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 Ann-Marie Syed DO Age/Sex: 24/F [place] [facility] [place]: Signed Intake Vital Signs 03/12/23 10:23 03/23/25 14:31 03/23/25 14:31 Height 5 ft 4 in 5 ft 4 in 5 ft 4 in Weight: 205 lb BMI 35.2 BP 110/69 Intake Visit Reasons: New OB, LMP 3.29, Co-care Sandwich Artist Required: No Is patient in pain?: No Allergies No Known Allergies Allergy (Verified 03/23/25 14:30) Medications ???Medication ???Instructions ???Recorded ???Confirmed ???Type docosahexaenoic acid 200 mg mg PO 11/20/22 03/23/25 History capsule ( DHA) calcium 1,000 mg (citrate)-vit D3 ml PO 03/22/25 03/23/25 History 10 mcg (400 unit)/30 mL oral liquid magnesium 200 mg tablet 200 mg PO QDAY 03/22/25 03/23/25 H istory progesterone 50 mg/mL 5 mg IM QDAY 03/22/25 03/23/25 His tory intramuscular oil pyridoxine (vitamin B6) 25 mg 25 mg PO QDAY 03/22/25 03/23/25 Hi story tablet Last Menstrual Period: 09/25/25 Zika: Zika virus screening: Negative : No Have you fallen in the past year?: No PFSH PFSH Surgical History H/O adenoidectomy Social History adopted: No household members: spouse and children housing: house number of children: 1 current occupational status: employed 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[employer] current occupational exposures/hazards: No pets and animals: Yes pets and animals: dog(s) history of recent travel: No sexually active: Yes Smoking Status: Never smoker alcohol intake: former details: not while substance use type: does not use caffeine: Yes Type: coffee what type of physical activity do you participate in: walking frequency: 3-4 times per week oj/congregational: [employer] seatbelt use: always do you feel safe at home: Yes additional social history: 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 Date Name GA/Weeks Outcome Route Bth Weight Gen Labor Lgth Anesthesia Del Locatn Provider FOB 01/26/23 Robyn 41 live - full term 8lbs 5oz Female 48hrs @ home, 5hrs pushing spinal [facility] Jesus Delivery Date: 01/26/23 Last Updated by: Violeta Chávez laboring at home for 48 hrs. pushed x 5 hours HPI New OB, LMP 3.29, Co-care Details: MARIEL QUINTEROS is a 24 year old who presents for New OB visit. She plans to participate in co-care with Rosey Avila (her mother) She is willing to do all the labs and ultrasounds with us. OB Visit FELIPE Calculator Estimated Delivery Date Method Current WG Current Estimate 09/25/25 LMP (Certain) 13w 3d Comments: HIV: Urine Culture: Sequential Screen: NIPT Screen: Estimated Due Date: 09/25/25 Expected Delivery Route/Plan patient counseled regarding risks/benefits of trial of labor versus repeat . ACOG/uptodate education given to patient. 45 % likelihood of success per calculator TOLAC consent form signed: [] Specific Issue/Plans Covid status: [] Flu vaccine: [] Tdap vaccine: [] Rhogam: [] LARC form signed: [] Problem list reviewed and updated with the most current plan of care details and appropriate orders placed. Relevant counseling for the gestational age provided. Continue routine care and follow up unless otherwise noted in visit notes/problem list details Initial Weight: Not Recorded Date -???-???-???-???-??? -???-???-???-???-??? -???-???- EGA Weight BP Urine Prot -???-???-???-???-??? -???-???-???-???-??? -???-???- Glucose FHR FuHt Pres Dilation -???-???-???-???-??? -???-???-???-???-??? -???-???- Effaced St Visit Note 03/23/25 -???-???-???-???-??? -???-???-???-???-??? -???-???- 13w 3d 205 lb 110/69 -???-???-???-???-??? -???-???-???-???-??? -???-???- 155 -???-???-???-???-??? -???-???-???-???-??? -???-???- JV- CRL cons istent with LMP. pt was a primary section- labored at home and came in after pushing for 5 hours and thick mec. Wants to . Menstrual History Last Menstrual Period: 09/25/25 Reported LMP: definite Normal amount/duration: Yes Frequency in days: 32 On hormonal BC at conception: No hCG+: 01/15/25 Antepartum Record Genetic Screening: Congenital Heart Defect: Other, Neural Tube Defect: Other, Hemoglobinopathy Or Carrier: Other, Cystic Fibrosis (more content not included)... Normal [facility] Platelet countOrdered By: Kaiser Bundy on 03-23-2025 Platelets (Bld) [#/Vol] 254 10*3/uL 150-450 [facility] RBC Auto (Bld) [#/Vol]Ordere d By: Ann-Marie Bundy on 03-23-2025 RBC (Bld) [#/Vol] 4.07 10*6/uL Low 4.2-5.4 [facility] Syphilis Antibodieson 2024 Syphilis Abs Non-Reactive Normal Nonreactive [facility] Comment on above: Performed By: #### L 501.9985, L3890.6102, L3890.6301, L509.8002, BTS, L3890.6006, L100.0100, L509.4006 #### [facility] Laboratory [address] [place], [place], [id number] Type AND Screenon 03-23-2025 Ab SCREEN GEL Negative Normal [facility] Comment on above: Order Comment: PN Performed By: #### L 501.9985, L3890.6102, L3890.6301, L509.8002, BTS, L3890.6006, L100.0100, L509.4006 #### [facility] [address] [place], [place], [id number] Urine cultureOrdered By: Samina Bundy on 03-23-2025 Bacteria identified Cx Nom (U) Positive Abnormal [facility] White blood cell (WBC) count Ordered By: Ann-Marie Bundy on 03-23-2025 WBC (Bld) [#/Vol] 9.4 10*3/uL 4.4-11.0 [facility] Basophil percentageOrdered B y: Dr. Bundy on 01-27-2023 WBC (Bld) [#/Vol] 11.0 10*3/uL 4.4-11.0 [facility] Blood erythrocytes count (nu mber/volume)Ordered By: Dr. Bundy on 01-27-2023 RBC (Bld) [#/Vol] 3.46 10*6/uL 4.2-5.4 [facility] Blood hemoglobin measurement (mass/volume)Ordered By: Dr. Bundy on 01-27-2023 Hemoglobin (Bld) [Mass/Vol] 9.9 g/dL 12.0-15.0 [facility] Blood platelet mean volumeOr dered By: Dr. Bundy on 01-27-2023 Platelet mean volume (Bld) [Entitic vol] 12.7 fL 6.2-12.0 [facility] Determination of erythrocyte mean corpuscular volume (MCV)Ordered By: Dr. Bundy on 01-27-2023 MCV (RBC) [Entitic vol] 87.9 fL 81-99 [facility] Hematocrit Auto (Bld) [Volum e fraction]Ordered By: Dr. Bundy on 01-27-2023 Hematocrit (Bld) [Volume fraction] 30.4 % 37-47 [facility] Laboratory - Hematology and Cell countsOrdered By: Dr. Bundy on 01-27-2023 Erythrocyte distribution width (RBC) [Entitic vol] 44.5 fL 35.1-43.9 [facility] Erythrocyte distribution width (RBC) [Ratio] 13.9 % 11.6-14.6 [facility] MCH (RBC) [Entitic mass] 28.6 pg 27.0-32.0 [facility] MCHC Auto (RBC) [Mass/Vol]Or dered By: Dr. Bundy on 01-27-2023 MCHC (RBC) [Mass/Vol] 32.6 g/dL 32-36 [facility] Platelets bldOrdered By: Dr. Bundy on 01-27-2023 Platelets (Bld) [#/Vol] 151 10*3/uL 150-450 [facility] Absolute lymphocyte countOrd ered By: Dr. Bundy on 01-26-2023 Lymphocytes Auto (Unsp spec) [#/Vol] 1.75 10*3/uL 0.83-4.51 [facility] Basophil percentageOrdered B y: Dr. Bundy on 01-26-2023 Basophils/100 WBC (Bld) 0.2 % 0-1 [facility] Eosinophils/100 WBC (Bld) 0.2 % 0-5 [facility] Neutrophils (Bld) [#/Vol] 16.3 10*3/uL 2.0-7.7 [facility] Neutrophils/100 WBC (Bld) 83.0 % 47-70 [facility] Blood lymphocytes/100 leukoc ytesOrdered By: Dr. Bundy on 01-26-2023 Lymphocytes/100 WBC (Bld) 8.9 % 19-41 [facility] Blood monocytes/100 leukocyt esOrdered By: Dr. Bundy on 01-26-2023 Monocytes/100 WBC (Bld) 6.7 % 0-10 [facility] HIV 1 and HIV-2 antibody ass ay with HIV-1 p24 antigen detectionOrdered By: Dr. Bundy on 01-26-2023 HIV 1+2 Ab+HIV1 p24 Ag IA Ql Non-Reactive Nonreactive [facility] Laboratory - Hematology and Cell countsOrdered By: Dr. Bundy on 01-26-2023 Immature granulocytes/100 WBC (Bld) 1.000 % 0.0-0.9 [facility] Comment on above: IG% - Immature Granu locytes (promyelocytes, myelocytes and metamyelocytes) > 1% indicates that a LEFT SHIFT is Present. Nucleated RBC/100 WBC (Bld) [Ratio] 0 % 0-5 [facility] No Panel InformationOrdered By: Dr. Bundy on 01-26-2023 Hepatitis B Surface Antigen Non-Reactive Nonreactive [facility] Hepatitis C Antibody Non-Reactive Nonreactive [facility] Comment on above: Non Reactive: < 0.8 Equivocal: >/= 0.8 to < 1.0 Reactive: >/= 1.0The CDC recommends that a reactive/equivocal HCV antibody result be followed up by the HCV Nucleic Acid Amplificationtest (025665) Rubella IgG Antibody Non-Reactive Nonreactive [facility] Comment on above: Antibody Results Int erpretation of Immune Status Non Reactive Presumed Non-Immune Equivocal Equivocal Reactive Presumed Immune Serum Treponema species anti body detectionOrdered By: Dr. Bundy on 01-26-2023 Treponema sp Ab Ql (S) Non-Reactive [facility] No Panel InformationOrdered By: Dr. Shaw on 01-06-2023 Group B Streptococcus Culture Group B Beta Streptococcus is not isolated. [facility] Laboratory - Chemistry and C hemistry - challengeon 01-03-2023 Glucose Ql (U) Negative [facility] Laboratory - Urinalysison Protein Ql (U) Negative [facility] Absolute lymphocyte countOrd ered By: Dr. Shaw on 11-20-2022 Lymphocytes Auto (Unsp spec) [#/Vol] 1.84 10*3/uL 0.83-4.51 [facility] Basophil percentageOrdered B y: Dr. Shaw on 11-20-2022 Basophils/100 WBC (Bld) 0.4 % 0-1 [facility] Eosinophils/100 WBC (Bld) 6.0 % 0-5 [facility] Neutrophils (Bld) [#/Vol] 6.0 10*3/uL 2.0-7.7 [facility] Neutrophils/100 WBC (Bld) 65.6 % 47-70 [facility] WBC (Bld) [#/Vol] 9.2 10*3/uL 4.4-11.0 [facility] Blood erythrocytes count (nu mber/volume)Ordered By: Dr. Shaw on 11-20-2022 RBC (Bld) [#/Vol] 3.86 10*6/uL 4.2-5.4 [facility] Blood hemoglobin measurement (mass/volume)Ordered By: Dr. Shaw on 11-20-2022 Hemoglobin (Bld) [Mass/Vol] 11.4 g/dL 12.0-15.0 [facility] Blood lymphocytes/100 leukoc ytesOrdered By: Dr. Shaw on 11-20-2022 Lymphocytes/100 WBC (Bld) 20.0 % 19-41 [facility] Blood monocytes/100 leukocyt esOrdered By: Dr. Shaw on 11-20-2022 Monocytes/100 WBC (Bld) 7.5 % 0-10 [facility] Blood platelet mean volumeOr dered By: Dr. Shaw on 11-20-2022 Platelet mean volume (Bld) [Entitic vol] 12.0 fL 6.2-12.0 [facility] Determination of erythrocyte mean corpuscular volume (MCV)Ordered By: Dr. Shaw on 11-20-2022 MCV (RBC) [Entitic vol] 89.4 fL 81-99 [facility] Hematocrit Auto (Bld) [Volum e fraction]Ordered By: Dr. Shaw on 11-20-2022 Hematocrit (Bld) [Volume fraction] 34.5 % 37-47 [facility] Laboratory - Hematology and Cell countsOrdered By: Dr. Shaw on 11-20-2022 Erythrocyte distribution width (RBC) [Entitic vol] 42.5 fL 35.1-43.9 [facility] Erythrocyte distribution width (RBC) [Ratio] 13.2 % 11.6-14.6 [facility] Immature granulocytes/100 WBC (Bld) 0.500 % 0.0-0.9 [facility] Comment on above: IG% - Immature Granu locytes (promyelocytes, myelocytes and metamyelocytes) > 1% indicates that a LEFT SHIFT is Present. MCH (RBC) [Entitic mass] 29.5 pg 27.0-32.0 [facility] Nucleated RBC/100 WBC (Bld) [Ratio] 0 % 0-5 [facility] MCHC Auto (RBC) [Mass/Vol]Or dered By: Dr. Shwa on 11-20-2022 MCHC (RBC) [Mass/Vol] 33.0 g/dL 32-36 [facility] Platelets bldOrdered By: Dr. Shaw on 11-20-2022 Platelets (Bld) [#/Vol] 223 10*3/uL 150-450 [facility] Follicle Stim. Hormon 2020 Follicle Stim. Horm 4.2 U/L Normal 1.7-21.5 [facility] Comment on above: Result Comment: Refe rence Range: Male: 1.5-12.4 Ovulating Female: Follicular Phase 3.5-12.5 Ovulation Phase 4.7-21.5 Luteal Phase 1.7-7.7 Postmenopausal Female: 25.8-134.8 Performed By: #### P ROL, FSH, LH #### [employer] [address] [place] [address] [id number] [employer] Portal Developer: Luc Sibley MD Luteinizing Hormoneon 2020 Luteinizing Hormone 2.1 U/L Normal 1.0-95.6 [facility] Comment on above: Result Comment: Refe rence Range: Male: 1.7-8.6 Ovulating Female: Follicular Phase 2.4-12.6 Ovulation Phase 14.0-95.6 Luteal Phase 1.0-11.4 Postmenopausal Female: 7.7-58.5 Performed By: #### P ROL, FSH, LH #### [facility] [place], [place] [id number] [employer] Portal Developer: Luc Sibley MD Prolactinon 12-13-2020 Prolactin 19.88 ug/L Normal 4.79-23.30 [facility] Comment on above: Result Comment: The presence of macroprolactin may cause interference in female patients with various endocrinological diseases or during . Performed By: #### P ROL, FSH, LH #### [facility] [address] [place] [address] [id number] [employer] Portal Developer: Luc Sibley MD Follicle Stimulating Hormone on 12-12-2020 FSH 4.2 U/L 1.7 - 21.5 U/L [employer] Work Phone: Comment on above: Reference Range: Male: 1.5-12.4 Ovulating Female: Follicular Phase 3.5-12.5 Ovulation Phase 4.7-21.5 Luteal Phase 1.7-7.7 Postmenopausal Female: 25.8-134.8 Luteinizing Hormoneon 2020 LH 2.1 U/L 1.0 - 95.6 U/L [employer] Work Phone: Comment on above: Reference Range: Male: 1.7-8.6 Ovulating Female: Follicular Phase 2.4-12.6 Ovulation Phase 14.0-95.6 Luteal Phase 1.0-11.4 Postmenopausal Female: 7.7-58.5 Prolactinon 12-12-2020 Prolactin 19.88 ug/L 4.79 - 23.30 ug/L [employer] Phone: Comment on above: The presence of macr oprolactin may cause interference in female patients with various endocrinological diseases or during . TSH w/reflex to FT4on 2020 TSH Qn 4.37 m[IU]/L Normal 0.30-5.00 [facility] Comment on above: Performed By: #### T SHX #### [facility] [address] [place] [address] [employer] Developer: Leo Ritchie MD TSH with Reflexon 12-12-2020 TSH Qn 4.37 m[IU]/L [employer] Phone: Vital Signs Date Time Vital Sign Value Performing Clinician Arlyn coppola 07-08-2025 13:57-0400 Body height 162.56 cm No Primary Care Physician [facility] 07-08-2025 13:57-0400 Body mass index (BMI) [Ratio] 35.7 kg/m2 No Primary Care Physician [facility] 07-08-2025 13:57-0400 Body weight 94.54 kg No Primary Care Physician [facility] 07-08-2025 13:57-0400 Diastolic blood pressure 69 mm[Hg] No Primary Care Physician [facility] 07-08-2025 13:57-0400 Systolic blood pressure 111 mm[Hg] No Primary Care Physician [facility] 05-31-2025 11:26-0400 Body height 162.56 cm No Primary Care Physician [facility] 05-31-2025 11:26-0400 Body mass index (BMI) [Ratio] 34.8 kg/m2 No Primary Care Physician [facility] 05-31-2025 11:26-0400 Body weight 92.1 kg No Primary Care Physician [facility] 05-31-2025 11:26-0400 Diastolic blood pressure 77 mm[Hg] No Primary Care Physician [facility] 05-31-2025 11:26-0400 Systolic blood pressure 119 mm[Hg] No Primary Care Physician [facility] 04-21-2025 13:44-0400 Body height 162.56 cm No Primary Care Physician [facility] 04-21-2025 13:43-0400 Body mass index (BMI) [Ratio] 35 kg/m2 No Primary Care Physician [facility] 04-21-2025 13:43-0400 Body weight 92.58 kg No Primary Care Physician [facility] 04-21-2025 13:43-0400 Diastolic blood pressure 75 mm[Hg] No Primary Care Physician [facility] 04-21-2025 13:43-0400 Systolic blood pressure 117 mm[Hg] No Primary Care Physician [facility] 03-23-2025 14:31-0400 Body height 162.56 cm No Primary Care Physician [facility] 03-23-2025 14:31-0400 Body mass index (BMI) [Ratio] 35.2 kg/m2 No Primary Care Physician [facility] 03-23-2025 14:31-0400 Body weight 92.98 kg No Primary Care Physician [facility] 03-23-2025 14:31-0400 Diastolic blood pressure 69 mm[Hg] No Primary Care Physician [facility] 03-23-2025 14:31-0400 Systolic blood pressure 110 mm[Hg] No Primary Care Physician [facility] 12-26-2023 15:38-0400 Body height 161.3 cm Galina Williamson DO Work Phone: [facility] 12-26-2023 15:38-0400 Body mass index (BMI) [Ratio] 34.52 kg/m2 Galina Williamson DO Work Phone: [facility] 12-26-2023 15:38-0400 Body weight 89.81 kg Galina Williamson DO Work Phone: [facility] 12-26-2023 15:38-0400 Diastolic blood pressure 70 mm[Hg] Galina Williamson DO Work Phone: [facility] 12-26-2023 15:38-0400 Heart rate 100 /min Galina Williamson DO Work Phone: [facility] 12-26-2023 15:38-0400 Systolic blood pressure 119 mm[Hg] Galina Williamson DO Work Phone: [facility] 03-12-2023 10:23-0400 Body height 162.56 cm No Primary Care Physician [facility] 03-12-2023 10:23-0400 Diastolic blood pressure 58 mm[Hg] No Primary Care Physician [facility] 03-12-2023 10:23-0400 Systolic blood pressure 103 mm[Hg] No Primary Care Physician [facility] 02-06-2023 10:25-0400 Body mass index (BMI) [Ratio] 32.5 kg/m2 No Primary Care Physician [facility] 02-06-2023 10:25-0400 Body weight 85.95 kg No Primary Care Physician [facility] 02-06-2023 10:25-0400 Diastolic blood pressure 72 mm[Hg] No Primary Care Physician [facility] 02-06-2023 10:25-0400 Systolic blood pressure 112 mm[Hg] No Primary Care Physician [facility] 01-27-2023 07:40-0400 Body temperature 97.7 [degF] No Primary Care Physician [facility] 01-27-2023 07:40-0400 Diastolic blood pressure 61 mm[Hg] No Primary Care Physician [facility] 01-27-2023 07:40-0400 Heart rate 77 /min No Primary Care Physician [facility] 01-27-2023 07:40-0400 Respiratory rate 16 /min No Primary Care Physician [facility] 01-27-2023 07:40-0400 SaO2% (BldA) [Mass fraction] 98 % No Primary Care Physician [facility] 01-27-2023 07:40-0400 Systolic blood pressure 100 mm[Hg] No Primary Care Physician [facility] 01-26-2023 05:18-0400 Body height 162.56 cm No Primary Care Physician [facility] 01-26-2023 05:18-0400 Body mass index (BMI) [Ratio] 35.4 kg/m2 No Primary Care Physician [facility] 01-26-2023 05:18-0400 Body weight 93.8 kg No Primary Care Physician [facility] 01-03-2023 13:10-0400 Body height 160.02 cm No Primary Care Physician [facility] 01-03-2023 13:08-0400 Body mass index (BMI) [Ratio] 37.3 kg/m2 No Primary Care Physician [facility] 01-03-2023 13:08-0400 Body weight 95.76 kg No Primary Care Physician [facility] 01-03-2023 13:08-0400 Diastolic blood pressure 75 mm[Hg] No Primary Care Physician [facility] 01-03-2023 13:08-0400 Systolic blood pressure 110 mm[Hg] No Primary Care Physician [facility] 11-20-2022 11:57-0500 Body height 160.02 cm No Primary Care Physician [facility] 11-20-2022 11:57-0500 Body mass index (BMI) [Ratio] 36.5 kg/m2 No Primary Care Physician [facility] 11-20-2022 11:57-0500 Body weight 93.61 kg No Primary Care Physician [facility] 11-20-2022 11:57-0500 Diastolic blood pressure 69 mm[Hg] No Primary Care Physician [facility] 11-20-2022 11:57-0500 Systolic blood pressure 108 mm[Hg] No Primary Care Physician [facility] 01-09-2022 15:22-0400 Body height 161.3 cm Galina Williamson DO Work Phone: [facility] 01-09-2022 15:22-0400 Body mass index (BMI) [Ratio] 38.34 kg/m2 Galina Williamson DO Work Phone: [facility] 01-09-2022 15:22-0400 Body temperature 97.81 [degF] Galina Williamson DO Work Phone: [facility] 01-09-2022 15:22-0400 Body weight 99.75 kg Galina Williamson DO Work Phone: [facility] 01-09-2022 15:22-0400 Diastolic blood pressure 81 mm[Hg] Galina Williamson DO Work Phone: [facility] 01-09-2022 15:22-0400 Heart rate 97 /min Galina Williamson DO Work Phone: [facility] 01-09-2022 15:22-0400 Systolic blood pressure 117 mm[Hg] Galina Williamson DO Work Phone: [facility] 10-20-2021 13:36-0500 Body height 161.3 cm Galina Williamson DO Work Phone: [facility] 10-20-2021 13:36-0500 Body mass index (BMI) [Ratio] 36.44 kg/m2 Galina Williamson DO Work Phone: [facility] 10-20-2021 13:36-0500 Body temperature 98.4 [degF] Galina Williamson DO Work Phone: [facility] 10-20-2021 13:36-0500 Body weight 94.8 kg Galina Williamson DO Work Phone: [facility] 10-20-2021 13:36-0500 Diastolic blood pressure 75 mm[Hg] Galina Williamson DO Work Phone: [facility] 10-20-2021 13:36-0500 Heart rate 77 /min Galina Williamson DO Work Phone: [facility] 10-20-2021 13:36-0500 Systolic blood pressure 118 mm[Hg] Galina Williamson DO Work Phone: [facility] Encounters Encounter Date Encounter Type Care Provider Facility Start: 08-03-2025 End: 08-03-2025 ambulatory Liana Modi Facility:[facility] Start: 07-22-2025 End: 07-22-2025 ambulatory Luann Primary Care Physician Facility:[facility] Start: 07-08-2025 End: 07-08-[address] Ann-Marie Mckenzie DO -[facility] Work Phone: Start: 07-08-2025 End: 07-08-2025 ambulatory Luann Primary Care Physician -[facility] Start: 06-03-2025 End: 06-03-2025 ambulatory ANN-MARIE ALSTON [facility] Start: 05-31-2025 End: 05-31-[address] Celeste Shaw MD -[facility] Work Phone: Start: 05-31-2025 End: 05-31-2025 ambulatory No Primary Care Physician -[facility] Start: 05-20-2025 End: 05-20-2025 ambulatory GALINA WILLIAMSON [facility] Start: 05-17-2025 ambulatory No Primary Car e Physician Facility:[facility] Start: 04-21-2025 End: 04-21-[address] Ann-Marie Mckenzie DO -[facility] Work Phone: Start: 04-21-2025 End: 04-21-2025 ambulatory No Primary Care Physician [facility] Start: 03-23-2025 End: 03-23-[address] Ann-Marie Mckenzie DO -[facility] Work Phone: Start: 03-23-2025 End: 03-23-2025 ambulatory No Primary Care Physician [facility] Start: 03-23-2025 End: 03-23-2025 ambulatory Ann-Marie Mckenzie Facility:[facility] Start: 12-26-2023 End: 12-26-2023 Office outpatient visit 15 minutes Galina Williamson DO Work Phone: [facility] Primary Care Physicians Comment on above: Onychomycosis (Prima ry Dx) Start: 03-12-2023 End: 03-12-2023 ambulatory No Primary Care Physician [facility] Work Phone: Start: 03-12-2023 End: 03-12-2023 Patient encounter procedure No Primary Care Physician [facility]-Laboratory, Specimen Start: 03-12-2023 End: 03-12-2023 Patient encounter procedure No Primary Care Physician [facility] Start: 02-06-2023 End: 02-06-2023 Patient encounter procedure No Primary Care Physician [facility] Start: 01-28-2023 End: 01-28-2023 Admission to same day surgery center No Primary Care Physician [facility]-Surgical Day Care Start: 01-28-2023 End: 01-28-2023 ambulatory No Primary Care Physician [facility] Work Phone: Start: 01-27-2023 Non-patient / Non-visit No Yuli sargent Care Physician [facility] Start: 01-26-2023 Non-patient / Non-visit No Yuli sargent Care Physician [facility] Start: 01-26-2023 End: 01-27-2023 Evaluation and management of inpatient No Primary Care Physician [facility] Start: 01-03-2023 End: 01-03-2023 ambulatory No Primary Care Physician [facility] Work Phone: Start: 01-03-2023 End: 01-03-2023 Patient encounter procedure No Primary Care Physician [facility]-Laboratory, Specimen Start: 01-03-2023 End: 01-03-2023 Patient encounter procedure No Primary Care Physician [facility] Start: 11-26-2022 End: 11-26-2022 Patient encounter procedure No Primary Care Physician [facility]-Ultrasound, [facility] Start: 11-20-2022 End: 11-20-2022 ambulatory No Primary Care Physician [facility] Work Phone: Start: 11-20-2022 End: 11-20-2022 Patient encounter procedure No Primary Care Physician [facility]Laboratory, [facility] Start: 11-20-2022 End: 11-20-2022 Patient encounter procedure No Primary Care Physician [facility] Start: 01-11-2022 Refill Tessy L Haverstraw [employer] [facility] Primary Care Physicians Start: 01-10-2022 End: 01-14-2022 ambulatory GALINA WILLIAMSON [facility] Start: 01-09-2022 End: 01-09-2022 ambulatory GALINA WILLIAMSON [facility] Start: 01-09-2022 End: 01-09-2022 Office outpatient visit 15 minutes Galina Williamson DO Work Phone: [facility] Primary Care Physicians Comment on above: Acute otalgia, right (Primary Dx); Diarrhea, unspecified type; Acute dysfunction of right eustachian tube Start: 10-20-2021 End: 10-20-2021 ambulatory GALINA WILLIAMSON [facility] Start: 10-20-2021 End: 10-20-2021 Office outpatient visit 15 minutes Galina Gonzalo Clay DO Work Phone: [facility] Physicians Comment on above: Eustachian tube dysf unction, right (Primary Dx) Start: 12-12-2020 End: 12-13-2020 Patient encounter procedure WENDIE WAGNER [facility] Start: 12-12-2020 End: 12-12-2020 Subsequent hospital visit by physician [facility] Comment on above: DUB (dysfunctional u terine bleeding) Procedures Date Procedure Procedure Detail Performing Clinician Start: 03-23-2025 Hepatitis C antibody measurement No Primary Care Physician Comment on above: Reactive: Presumptiv e evidence of antibodies to HCV. Follow CDC recommendations for supplemental testing.Non-Reactive: Antibodies to HCV were not detected; does not exclude the possibility of exposure to HCVReactive Results are presumptive evidence of antibodies to HCV. Follow CDC recommendations for supplemental testing.Order confirmation testing: HCV Quant by PCR testing - HCVPCR lc#[id number] Non Reactive: < 0.8 Equivocal: >/= 0.8 to < 1.0 Reactive: >/= 1.0The CDC requires that a reactive/equivocal HCV antibody result be sent out for confirmation. HCV Quant by PCR testing. Start: 03-23-2025 Rubella IgG measurement No Primary Care Physician Comment on above: Antibody Result: Int erpretationNon-Reactive: Non- ImmuneReactive: ImmuneThe following results were obtained with the [employer] Rubella IgG assay. Results from assays of other manufacturers cannot be used interchangeably. Start: 03-23-2025 Serologic test for syphilis No Primary Care Physician Start: 03-23-2025 Urine culture No Primar y Care Physician Start: 11-26-2022 anatomy study No Primary Care Physician Start: 10-20-2021 Adult depression scr eening assessment Galina Williamson DO Work Phone: Start: 12-12-2020 Assay of prolactin Amber Wagner Work Phone: Start: 12-12-2020 Gonadotropin follicl e stimulating hormone Wendie E Pool Work Phone: Start: 12-12-2020 Gonadotropin luteini zing hormone Wendie E Pool Work Phone: Start: 12-12-2020 Assay of thyroid stimulating hormone tsh Wendie E Pool Work Phone: Group B Streptococcu s Culture No Primary Care Physician H/O: section Status pos t section No Primary Care Physician Comment on above: PC/S "Robyn" per J V 01/26/23 Labored with it generalist at home X 48 hr. Pushed for 5 hr. Meconium H/O: section History of C-sectio n No Primary Care Physician Comment on above: 2022, interested in for current 2022, interested in for current - chance of success is 45% H/O: section History of C-sectio n Dr. Ann-Marie Mckenzie DO H/O: section History of C-sectio n Dr. Ann-Marie Mckenzie DO H/O: section History of C-sectio n Dr. Celeste Shaw MD H/O: section History of C-sectio n Dr. Ann-Marie Mckenzie DO Plan of Treatment Date Care Activity Detail Author Start: 05-31-2025 Measurement of gluco se 2 hours after glucose challenge for glucose tolerance test [facility] Start: 05-31-2025 Serologic test for syphilis [facility] Start: 05-31-2025 [facility] Start: 03-23-2025 CBC W Auto Different ial panel - Blood [facility] Start: 03-23-2025 Hemoglobin A1c/Hemoglobin.total in Blood [facility] Start: 03-23-2025 Hepatitis C antibody measurement [facility] Start: 03-23-2025 Rubella IgG measurement [facility] Start: 03-23-2025 Serologic test for syphilis [facility] Start: 03-23-2025 [facility] Start: 05-24-2024 Influenza vaccination Influenz a Vaccine (Season Ended) [facility] Start: 05-24-2023 COVID-19 Vaccine ( season) COVID-19 Vaccine ( season) [facility] Start: 03-12-2023 Liquid based cervica l cytology screening [facility] Start: 01-28-2023 Injection of autolog ous whole blood into spinal epidural space Blood Patch (Not Applicable) [facility] Start: 01-27-2023 Application of abdom inal corset [facility] Start: 01-27-2023 Patient discharge [facility] Start: 01-26-2023 [facility] Start: 01-26-2023 Administration of medication [facility] Start: 01-26-2023 Ambulation therapy management [facility] Start: 01-26-2023 Application of device [facility] Start: 01-26-2023 End: 01-26-2023 Application of intermittent pneumatic compression device [facility] Start: 01-26-2023 Assessment of risk o f venous thromboembolism [facility] Start: 01-26-2023 Catheterization of vein [facility] Start: 01-26-2023 Deep breathing and coughing exercises [facility] Start: 01-26-2023 Exercises [facility] Start: 01-26-2023 Incentive spirometry [facility] Start: 01-26-2023 Introduction of urin nelda catheter [facility] Start: 01-26-2023 Measuring intake and output [facility] Start: 01-26-2023 Notification of physician [facility] Start: 01-26-2023 Procedure discontinued [facility] Start: 01-26-2023 Provision of activit y privileges [facility] Start: 01-26-2023 Vital signs measurements [facility] Start: 01-26-2023 Wound care [facility] Start: 01-26-2023 [facility] Start: 01-26-2023 Application of abdom inal corset [facility] Start: 01-26-2023 Admission procedure [facility] Start: 10-20-2022 Depression screening using PHQ-9 (Patient Health Questionnaire 9) score Depression Screening (PHQ-2/9) [facility] Start: 2022 Screening for malign ant neoplasm of cervix Pap Smear [facility] Start: 05-24-2022 Influenza vaccination Sequenti al Influenza Vaccine (Season Ended) [facility] Start: 05-24-2021 Influenza vaccination Sequenti al Influenza Vaccine (#1) [facility] Start: 01-18-2021 End: 01-18-2021 Ancillary Procedure [facility] Start: 2020 DTaP/Tdap/Td vaccine (1 - Tdap) DTaP/Tdap/Td vaccine ([facility] - [facility]dap[facility] Start: 05-24-2020 Influenza vaccination Flu vaccine (# 1) [facility] [employer] Phone: Start: 2019 Hepatitis C screening Hepatitis C Sc reening [facility] Start: 11-27-2017 History and physical examination, annual for health maintenance Wellness Visit [facility] Start: 2017 COVID-19 Vaccine (1) COVID-19 Vaccin e (1) [facility] Phone: Start: 2017 Screening for Chlamy gautam trachomatis Chlamydia screen [facility] [employer] Phone: Start: 2016 HIV screening [facility] Start: 2016 Vaccination for dario n papillomavirus HPV Vaccines (1 - 3-dose series) [facility] Start: 2012 HPV vaccine (1 - 2-d ose series) HPV vaccine (1 - 2-dose series) [facility] [employer] Phone: Start: 2012 Vaccination for dario n papillomavirus HPV Vaccines (1 - 2-dose series) [facility] Start: 2006 COVID-19 Vaccine (1) COVID-19 Vaccin e (1) [facility] Start: 2002 Varicella vaccine (1 of 2 - 2-dose childhood series) Varicella vaccine (1 of 2 - 2-dose childhood series) [facility] Phone: Start: 2001 Hepatitis C screening Hepatitis C sc reen [facility] Phone: Start: 2001 Screening for Chlamy gautam trachomatis Chlamydia Screening [facility] Start: 2001 Tetanus vaccination Tetanus: Every 1 0yrs [facility] CBC W Auto Different ial panel - Blood [facility] Chlamydia deoxyribon ucleic acid detection [facility] Erythrocyte mean corpuscular volume determination [facility] anatomy study [facility] End: 01-09-2023 Gastrointestinal pathogens DNA and RNA panel - Stool by LINNEA with non-probe detection Stool/GI PCR Panel Microbiology Routine Diarrhea, unspecified type 1 Occurrences starting 01/09/2022 until 01/09/2023 [facility] Phone: Comment on above: 1 Occurrences starti ng 01/09/2022 until 01/09/2023 Hematocrit [Volume Fraction] of Blood [facility] Hemoglobin [Mass/vol ume] in Blood [facility] Hepatitis B virus pisano rface Ag [Presence] in Serum [facility] Leukocytes [#/volume ] in Blood [facility] Mean corpuscular hemoglobin concentration determination [facility] Mean corpuscular hemoglobin determination [facility] Neutrophil count [facility] Neutrophil percent differential count [facility] Path report.final Dx Spec [facility] Platelets [#/volume] in Blood [facility] Red blood cell count [facility] Red cell distributio n width determination [facility] Payers Date Payer Category Payer Self-pay 2025 Unknown [id number] 2022 Unknown [id number] 2020 Unknown [id number] 2001 Unknown [id number] 2.16.8 [id number] 2001 Unknown [id number] 2.16. [id number] 2001 Unknown [id number] 2.16. [id number] 1979 Unknown [id number] 2.16. [id number] 1979 Unknown [id number] 2.16. [id number] 1979 Unknown [id number] 2.16. [id number] Unknown [id number] Unknown MARTIN [id number] Unknown [id number] 2.16.8 [id number] Unknown [id number] 2.16.8 [id number] Unknown [id number] 2.16.8 [id number] Unknown [id number] 2.16.8 [id number] Unknown [id number] 2.16.8 [id number] Unknown [id number] 2.16.8 [id number] Unknown [id number] 2.16.8 [id number] Unknown [id number] 2.16.8 [id number] Social History Date Type Detail Facility Start: 12-12-2020 End: 03-22-2025 Tobacco smoking status [facility] Never smoker [facility] Phone: Start: 11-27-2016 End: 12-12-2020 Tobacco use and exposure Never used [facility] Phone: Start: 12-12-2020 Alcohol intake Current drinke r of alcohol (finding) [facility] Phone: Start: 12-12-2020 History SDOH Alcohol Frequency 2 [facility] Phone: Start: 12-12-2020 History SDOH Alcohol Std Drinks 99 [facility] Phone: Start: 12-12-2020 Alcohol Comment [facility] Work Phone: Start: 2001 [facility] Start: 12-30-2021 End: 01-09-2022 Exposure to SARS-CoV-2 (event) Not sure [facility] Work Phone: Start: 10-20-2021 End: 12-26-2023 Alcohol intake Current non-drinker of alcohol (finding) [facility] Start: 11-20-2022 End: 03-12-2023 Tobacco smoking status [facility] Unknown if ever smoked [facility] Start: 2000 Sex Assigned At Female W [facility] Start: 10-20-2021 End: 01-09-2022 History of Social function [facility] Start: 10-20-2021 End: 01-09-2022 Tobacco use panel [facility] Adult Depression Screening Assessment 0 [facility] Goals Date Patient Goal Desired Activity /State Mental Status Date Assessment Result Facility 01-26-2023 Cognitive function Level Of Cons ciousness Awake;Alert;Appropriate [facility] Work Phone: Clinical Notes 10-20-2021 to 07-08-2025 Note Date & Type Note Facility 07-08-2025 Progress note [facility] 07-08-2025 Progress note Note Date/Time July 08, 2025 2:42pm [facility] [address], [address] [place] [address] OFFICE VISIT Date of Service: 07/08/25 MR#: [id number] Acct: [id number] Name: MARIEL QUINTEROS Rep #: [id number] : 2000 Provider: Dr. Virginia Mckenzie DO Age/Sex: 24/F [place] [facility] Status: Signed Intake Vital Signs 05/31/25 11:26 07/08/25 13:57 07/08/25 13:57 Height 5 ft 4 in 5 ft 4 in 5 ft 4 in Weight: 208 lb 7 oz BMI 35.7 BP 111/69 Intake Visit Reasons: 28 WK 5D OB *co-care *Moved from 06/28 per pt Sandwich Artist Required: No Is patient in pain?: No Allergies No Known Allergies Allergy (Verified 07/08/25 13:57) Medications ?Medication ?Instructions ?Recorded ?Confirmed ?Type docosahexaenoic acid 200 mg mg PO 11/20/22 07/08/25 Hi story capsule ( DHA) calcium 1,000 mg (citrate)-vit D3 ml PO 03/22/2507/08 History 10 mcg (400 unit)/30 mL oral liquid magnesium 200 mg tablet 200 mg PO QDAY 03/22/2506/23 History pyridoxine (vitamin B6) 25 mg 25 mg PO QDAY 03/22/25 1 History tablet Last Menstrual Period: 09/25/25 Zika: Zika virus screening: Negative : No PFSH PFSH Surgical History H/O adenoidectomy Social History adopted: No household members: spouse and children housing: house number of children: 1 current occupational status: employed 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[employer] current occupational exposures/hazards: No pets and animals: Yes pets and animals: dog(s) history of recent travel: No sexually active: Yes Smoking Status: Never smoker alcohol intake: former details: not while substance use type: does not use caffeine: Yes Type: coffee what type of physical activity do you participate in: walking frequency: 3-4 times per week oj/congregational: [employer] seatbelt use: always do you feel safe at home: Yes additional social history: 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 Date Name GA/Weeks Outcome Route Bth Weight Infant Gen Labor Lgth Anesthesia Del Locatn Provider FOB 01/26/23 Robyn 41 live - full term 8lbs 5oz Fema le 48hrs @ home, 5hrs pushing spinal [facility] Jesus Delivery Date: 01/26/23 Last Updated by: Violeta Chávez laboring at home for 48 hrs. pushed x 5 hours HPI 28 WK 5D OB *co-care *Moved from 06/28 per pt Details: MARIEL QUINTEROS is a 24 year old who presents for routine OB visit. OB Visit FELIPE Calculator Estimated Delivery Date Method Current WG Current Estimate 09/25/25 LMP (Certain) 28w 5d Expected Delivery Route/Plan desires TOLAC- patient having cocare with Roseycesar Avila for visits, epxlained that if she is planning a she needs to plan to have a hospital with us. we do not reocmmend or approve a home this is not considered a safe venue especially because she is 90 minutes away from our hospital and she has a lower chance of a successful TOLAC. I discussed the risks of permanent neurologic injury, hemorrhage, hysterectomy, and loss of life. patient to decide if she wishes to continue cocare patient counseled regarding risks/benefits of trial of labor versus repeat . ACOG/uptodate education given to patient. 45 % likelihood of success per calculator, but may be as low as 10% becuaseshe was complete an pushed for five hours with no success. TOLAC consent form signed: [] Specific Issue/Plans Covid status: [] Flu vaccine: [] Tdap vaccine: [] Rhogam: [] LARC form signed: [] Problem list reviewed and updated with the most current plan of care details and appropriate orders placed. Relevant counseling for the gestational age provided. Continue routine care and follow up unless otherwise noted in visit notes/problem list details Initial Weight: Not Recorded Date -?-?-?-?-?-?-?-?-?-?-?-?- EGA Weight BP Urine Prot -?-?-?-?-?-?-?-?-?-?-?-?- Glucose FHR FuHt Pres Dilation -?-?-?-?-?-?-?-?-?-?-?-?- Effaced St Visit Note 03/23/25 -?-?-?-?-?-?-?-?-?-?-?-?- 13w 3d 205 lb 110/69 -?-?-?-?-?-?-?-?-?-?-?-?- 155 -?-?-?-?-?-?-?-?-?-?-?-?- JV- CRL consiste nt with LMP. pt was a primary section- labored at home and came in after pushing for 5 hours and thick mec. Wants to . 04/21/25 -?-?-?-?-?-?-?-?-?-?-?-?- 17w 4d 204 lb 2 oz 117/75 Nega tive -?-?-?-?-?-?-?-?-?-?-?-?- Negative 151 -?-?-?-?-?-?-?-?-?-?-?-?- JV- no lof, vagi nal bleeding, or cramping. has some allergy symptoms. plans to find out the gender at the anatomy scan from [facility] 05/20. 05/31/25 -?-?-?-?-?-?-?-?-?-?-?-?- 23w 2d 203 lb 1 oz 119/77 Nega tive -?-?-?-?-?-?-?-?-?-?-?-?- Negative 140 24 -?-?-?-?-?-?-?-?-?-?-?-?- SM- no vb lof go od fm SM- no vb lof good fm declin ing gct- will check BS at home. no regluar ctx. discussed risks of tolac at home and we do not recommend and will only provide cocare in if she is having a planned hospital . documentaiton in plan of [facility]. 07/08/25 -?-?-?-?-?-?-?-?-?-?-?-?- 28w 5d 208 lb 7 oz 111/69 Nega tive -?-?-?-?-?-?-?-?-?-?-?-?- Negative 142 32 -?-?-?-?-?-?-?-?-?-?-?-?- JV- pt decided s he will start checking her glucose levels qid. She has not done that yet but plans to start shanon. plan 36 week growth scan. ACOG First Trimester First Trimester: Desire for , Alcohol, Tobacco Cessation, Illicit/Recreational Drug/Substance Use, Intimate Partner Violence, Barriers to care, Unstable Housing, Communication Barriers, Environmental/Work Hazards, Anticipated Course of Care, Toxoplasmosis Precations, Use of Any medications, Sexual activity, Exercise, Dental Care, Sauna/Hot tub use, Seat Belt use, Childbirth classes/Hospital facilities, Travel, Indications for Ultrasound and Screening for Aneuploidy; Discussed Results POC Urinalysis 2 Dip (Clinic) Office Urine Glucose Negative Last Edit by Violeta Chávez on 07/08/25 14: 08 Office Urine Protein Negative Last Edit by Violeta Chávez on 07/08/25 14: 08 Coding Level of Care Code OB Routine Diagnoses Obesity affecting O99.210 Supervision of high-risk O09.90 28 weeks gestation of Z3A.28 Weeks of gestation: 28 weeks History of Z98.891 [place] teeth removed K08.409 Status post section Z98.891 Assessment and Plan Assessment and Plan (1) Obesity affecting : Status: Acute (2) Supervision of high-risk : Status: Acute Comment: PRR , FELIPE 09/25/25, ROSIBEL Carlson Spouse Jesus (3) : Status: Acute Qualifiers: Weeks of gestation: 28 weeks Qualified Code(s): Z3A.28 - 28 weeks gestation of Comment: cocare Pt, NIPT w gender/carrier- declines. Anatomy nl. (4) History of : Status: Acute Comment: 2022, interested in for current - chance of success is 45% (5) [place] teeth removed: Status: Acute Comment: 2022 (6) Status post section: Status: Acute Comment: PC/S "Robyn" per JV 01/26/23 Labored with it generalist at home X 48 hr. Pushed for 5 hr. Meconium Orders: Orders POC Urinalysis 2 Dip (Clinic) Today 07/08/25 4884 <Electronically signed by Ann-Marie Gallegos DO> Date _ Ann-Marie Mckenzie DO Cosigner Signature: Date (if applicable) CC: ~ [facility] Work Phone: 1(896) 865-334307-30-2025 Progress [facility] [address], [address] [place] [id number] OFFICE VISIT Date of Service: 04/21/25 MR#: [id number] Acct: [id number] Name: MARIEL QUINTEROS Rep #: [id number] : 2000 Provider: Dr. Virginia Mckenzie DO Age/Sex: 24/F [place] [facility] [place]: Signed Intake Vital Signs 03/12/23 10:23 03/23/25 14:31 04/21/25 13:43 04/21/25 13:44 Height 5 ft 4 in 5 ft 4 in 5 ft 4 in 5 ft 4 in Weight: 204 lb 2 oz BMI 35.0 BP 117/75 Intake Visit Reasons: 17wk OB *co-care Sandwich Artist Required: No Is patient in pain?: No Allergies No Known Allergies Allergy (Verified 04/21/25 13:43) Medications ?Medication ?Instructions ?Recorded ?Confirmed ?Type docosahexaenoic acid 200 mg mg PO 11/20/22 04/21/25 Hi story capsule ( DHA) calcium 1,000 mg (citrate)-vit D3 ml PO 03/22/2504/21 History 10 mcg (400 unit)/30 mL oral liquid magnesium 200 mg tablet 200 mg PO QDAY 03/22/2503/25 History progesterone 50 mg/mL 5 mg IM QDAY 03/22/25 History intramuscular oil pyridoxine (vitamin B6) 25 mg 25 mg PO QDAY 03/22/25 0 04/21/25 History tablet Last Menstrual Period: 09/25/25 Zika: Zika virus screening: Negative : No PFSH PFSH Surgical History H/O adenoidectomy Social History adopted: No household members: spouse and children housing: house number of children: 1 current occupational status: employed 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[employer] current occupational exposures/hazards: No pets and animals: Yes pets and animals: dog(s) history of recent travel: No sexually active: Yes Smoking Status: Never smoker alcohol intake: former details: not while substance use type: does not use caffeine: Yes Type: coffee what type of physical activity do you participate in: walking frequency: 3-4 times per week oj/congregational: [employer] seatbelt use: always do you feel safe at home: Yes additional social history: 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 Date Name GA/Weeks Outcome Route Bth Weight Gen Labor Lgth Anesthesia Del Locatn Provider FOB 01/26/23 Robyn 41 live - full term 8lbs 5oz Fema le 48hrs @ home, 5hrs pushing spinal [facility] Jesus Delivery Date: 01/26/23 Last Updated by: Violeta Chávez laboring at home for 48 hrs. pushed x 5 hours HPI 17wk OB *co-care Details: MARIEL QUINTEROS is a 24 year old who presents for routine OB visit. OB Visit FELIPE Calculator Estimated Delivery Date Method Current WG Current Estimate 09/25/25 LMP (Certain) 17w 4d Expected Delivery Route/Plan patient counseled regarding risks/benefits of trial of labor versus repeat . ACOG/uptodate education given to patient. 45 % likelihood of success per calculator TOLAC consent form signed: [] Specific Issue/Plans Covid status: [] Flu vaccine: [] Tdap vaccine: [] Rhogam: [] LARC form signed: [] Problem list reviewed and updated with the most current plan of care details and appropriate ordersplaced. Relevant counseling for the gestational age provided. Continue routine care and follow up unless otherwise noted in visit notes/problem list details Initial Weight: Not Recorded Date -?-?-?-?-?-?-?-?-?-?-?-?- EGA Weight BP Urine Prot -?-?-?-?-?-?-?-?-?-?-?-?- Glucose FHR FuHt Pres Dilation -?-?-?-?-?-?-?-?-?-?-?-?- Effaced St Visit Note 03/23/25 -?-?-?-?-?-?-?-?-?-?-?-?- 13w 3d 205 lb 110/69 -?-?-?-?-?-?-?-?-?-?-?-?- 155 -?-?-?-?-?-?-?-?-?-?-?-?- JV- CRL consiste nt with LMP. pt was a primary section- labored at home and came in after pushing for 5 hours and thick mec. Wants to . 04/21/25 -?-?-?-?-?-?-?-?-?-?-?-?- 17w 4d 204 lb 2 oz 117/75 Nega tive -?-?-?-?-?-?-?-?-?-?-?-?- Negative 151 -?-?-?-?-?-?-?-?-?-?-?-?- JV- no lof, vagi nal bleeding, or cramping. has some allergy symptoms. plans to find out the gender at the anatomy scan from [facility] 05/20. ACOG First Trimester First Trimester: Desire for , Alcohol, Tobacco Cessation, Illicit/Recreational Drug/Substance Use, Intimate Partner Violence, Barriers to care, Unstable Housing, Communication Barriers, Environmental/Work Hazards, Anticipated Course of Care, Toxoplasmosis Precations, Use of Any med ications, Sexual activity, Exercise, Dental Care, Sauna/Hot tub use, Seat Belt use, Childbirth classes/Hospital facilities, Travel, Indications for Ultrasound and Screening for Aneuploidy; Discussed Results POC Urinalysis 2 Dip (Clinic) Office Urine Glucose Negative Last Edit by Violeta Chávez on 04/21/25 13: 54 Office Urine Protein Negative Last Edit by Violeta Chávez on 04/21/25 13: 54 Coding Level of Care Code OB Routine Diagnoses Obesity affecting O99.210 Supervision of high-risk O09.90 17 weeks gestation of Z3A.17 Weeks of gestation: 17 weeks History of Z98.891 [place] teeth removed K08.409 Status post section Z98.891 Assessment and Plan Assessment and Plan (1) Obesity affecting : Status: Acute (2) Supervision of high-risk : Status: Acute Comment: , FELIPE 09/25/25, PC Robyn Spouse Jesus (3) : Status: Acute Qualifiers: Weeks of gestation: 17 weeks Qualified Code(s): Z3A.17 - 17 weeks gestation of Comment: cocare Pt, NIPT w gender/carrier- declines (4) History of : Status: Acute Comment: 2022, interested in for current - chance of success is 45% (5) [place] teeth removed: Status: Acute Comment: 2022 (6) Status post section: Status: Acute Comment: PC/S "Robyn" per JV 01/26/23 Labored with it generalist at home X 48 hr. Pushed for 5 hr. Meconium Orders: Orders POC Urinalysis 2 Dip (Clinic) Today 04/21/25 1358 e Niharika DO> Date _ Ann-Marie Mckenzie DO Cosignseble Signature: Date (if applicable) CC: ~ [facility]07-01-2025 Evaluation note* Diagnosis Onset Date Resolution Status Admit Date History of acute March 23, 2025 2:23pm Obesity affecting acute March 23, 2025 2:23pm acute March 23, 2025 2:23pm Status post section acute March 23, 2025 2:23pm Supervision of high-risk a cute March 23, 2025 2:23pm [place] teeth removed acute March 23, 2025 2:23pm [facility] Work Phone: 1(904) 567-323507-01-2025 Evaluation note* Diagnosis Onset Date Resolution Status Admit Date History of acute March 23, 2025 2:23pm Obesity affecting acute March 23, 2025 2:23pm acute March 23, 2025 2:23pm Status post section acute March 23, 2025 2:23pm Supervision of high-risk acute March 23, 2025 2 :23pm [place] teeth removed acute March 23, 2025 2:23pm History of acute April 21, 2025 1:41pm Obesity affecting acute April 21, 2025 1:41pm acute April 21 1:41pm Status post section acute April 21, 2025 1:41pm Supervision of high-risk acute April 21, 2025 1:41pm [place] teeth removed acute April 21, 2025 1:41pm [facility] Work Phone: 1(717) 713-331107-01-2025 Evaluation note* Diagnosis Onset Date Resolution Status Admit Date History of acute March 23, 2025 2:23pm Obesity affecting acute March 23, 2025 2:23pm acute March 23, 2025 2:23pm Status post section acute March 23, 2025 2:23pm Supervision of high-risk acute March 23, 2025 2 :23pm [place] teeth removed acute March 23, 2025 2:23pm History of acute April 21, 2025 1:41pm Obesity affecting acute April 21, 2025 1:41pm acute April 21 1:41pm Status post section acute April 21, 2025 1:41pm Supervision of high-risk acute April 21, 2025 1:41pm [place] teeth removed acute April 21, 2025 1:41pm History of acute May 11:22am Obesity affecting acute May 31, 2025 11:22am acute May 31, 2025 11:22am Status post section acute May 31, 2025 11:22am Supervision of high-risk acute May 31 11:22am [place] teeth removed acute May 11:22am [facility] Work Phone: 1(204) 755-299007-01-2025 Evaluation note* Diagnosis Onset Date Resolution Status Admit Date History of acute March 23, 2025 2:23pm Obesity affecting acute March 23, 2025 2:23pm acute March 23, 2025 2:23pm Status post section acute March 23, 2025 2:23pm Supervision of high-risk acute March 23, 2025 2 :23pm [place] teeth removed acute March 23, 2025 2:23pm History of acute April 21, 2025 1:41pm Obesity affecting acute April 21, 2025 1:41pm acute April 21 1:41pm Status post section acute April 21, 2025 1:41pm Supervision of high-risk acute April 21, 2025 1:41pm [place] teeth removed acute April 21, 2025 1:41pm History of acute May 11:22am Obesity affecting acute May 31, 2025 11:22am acute May 31, 2025 11:22am Status post section acute May 31, 2025 11:22am Supervision of high-risk acute May 31 11:22am [place] teeth removed acute May 11:22am History of acute 2024 1:54pm Obesity affecting acute July 08, 2025 1:54pm acute July 08, 2025 1:54pm Status post section acute July 08, 2025 1:54pm Supervision of high-risk acute July 08 1:54pm [place] teeth removed acute 2024 1:54pm [facility] Work Phone: 1([phone]) 364-941204-04-2024 History of Present illness Narrative* Galina Williamson, - 12/26/2023 3:33 PM EDT Images from the original note were not included. Subjective Pt here today for toenail fungus middle toe left foot Patient ID: Mariel Quinteros is a 23 y.o. female. HPI Review of Systems Constitutional: Negative for chills. HENT: Negative for congestion. Eyes: Negative for visual disturbance. Respiratory: Negative for cough. Cardiovascular: Negative. Gastrointestinal: Negative for abdominal pain. Endocrine: Negative for polydipsia. Genitourinary: Negative for dysuria. Musculoskeletal: Negative for myalgias. Skin: Negative for rash. Allergic/Immunologic: Negative. Neurological: Negative. Hematological: Negative. Psychiatric/Behavioral: Negative. Objective Physical Exam Vitals and nursing note reviewed. Constitutional: Appearance: She is well-developed. HENT: Head: Normocephalic and atraumatic. Right Ear: External ear normal. Left Ear: External ear normal. Eyes: Conjunctiva/sclera: Conjunctivae normal. Pupils: Pupils are equal, round, and reactive to light. Cardiovascular: Rate and Rhythm: Normal rate and regular rhythm. Heart sounds: Normal heart sounds. Pulmonary: Effort: Pulmonary effort is normal. Breath sounds: Normal breath sounds. No wheezing or rales. Abdominal: General: Bowel sounds are normal. Palpations: Abdomen is soft. Tenderness: There is no guarding or rebound. Musculoskeletal: General: Normal range of motion. Cervical back: Normal range of motion and neck supple. Feet: Feet: Comments: Thick yellow toenail. Skin: General: Skin is warm and dry. Findings: No rash. Neurological: Mental Status: She is alert and oriented to person, place, and time. Deep Tendon Reflexes: Reflexes are normal and symmetric. Psychiatric: Behavior: Behavior normal. Assessment/Plan: Diagnoses and all orders for this visit: Onychomycosis - terbinafine HCL (LAMISIL) 250 mg tablet; Take 1 (one) tablet (250 mg total) by mouth daily . For any new medications prescribed today, patient was educated about indications for the medication, how to take the medication and potential side effects of the medications. Follow up PRN documented in this [id number] Bundy [facility] January 27, 2023 6:22am Note Date/Time January 27, 2023 6:22am [facility] Medical Records Department [address] [place] [address] Progress Note - OBGYN 01/27/23 0620 MR#: [id number] Acct: [id number] Name: MARIEL QUINTEROS Rep #:[id number] : 2000 22 From: Ann-Marie Mckenzie DO PCP: Status:ADM IN Location: [id number] Subjective Subjective Patient is laying in bed comfortably without complaints. She states that she slept on an off during the night. Lochia is mild and pain is minimal. She is struggling a bit with breast feeding the baby this am but asking to be discharged to home Objective Data Objective Data Vital Signs: Vital Signs Temp Pulse Resp BP Pulse Ox O2 Del Method 97.5 F L 82 16 100/50 L 97 Room Air 01/27/23 04:17 01/27/23 04:17 01/27/23 04:17 01/27/23 04:17 01/27/23 04:17 01/27/23 04:17 Oxygen Delivery Method Room Air Weight: 206 lb 12.697 oz Body Mass Index (BMI) 35.4 Intake & Output: Intake and Output for Last 24 Hours 01/25/23 01/26/23 01/27/23 23:59 23:59 23:59 Intake Total 1615 / 1615 Output Total 2105 / 2105 600 / 600 Balance -490 / -490 -600 / -600 Lab / Micro Data Result Diagrams: 01/26/23 05:20 Labs: Laboratory Results - last 24 hr 01/26/23 05:20: Syphilis Total Ab Non-reactive, Hep Bs Antigen Non-Reactive, Hepatitis C Antibody Non-Reactive, HIV 1&2 Antibody Non-Reactive, Rubella IgG Antibody Non-Reactive 01/26/23 05:20: Blood Type AB POSITIVE, Antibody Screen NEGATIVE ROS Constitutional Constitutional: Reports systems reviewed and no addt'l complaints, except as documented Cardiovascular Cardiovascular: Denies chest pain, dizziness, dyspnea or irregular heart rhythm Respiratory/Chest Respiratory/Chest: Denies cough, pain on inspiration or shortness of breath at rest Gastrointestinal Gastrointestinal: Denies abdominal pain, nausea or vomiting Genitourinary Genitourinary: Denies burning urination Musculoskeletal Musculoskeletal: Denies muscle cramps, muscle spasms or muscle weakness Neurologic Neurologic: Denies confusion, dizziness, headache(s) or lack of coordination Psychiatric Psychiatric: Denies anxiety, behavioral changes or depression Physical Exam HEENT normocephalic Resp normal respiratory effort and normal air movement GI soft to palpation, non-tender and non-distended Rectal Exam: other Other Details: Incision is clean, dry, and intact no CVA tenderness Extremity normal to inspection General Extremity: edema bilateral (trace ) Assessment & Plan (1) Status post section: PLAN: Plan s/p LTCS PPD # 1 1. routine post care 2. breast feeding- support given 3. rh positive 4. rubella immune 5. plan for dc to home later today 01/27/23621 <Electronically signed by Ann-Marie Mckenzie DO> Cosigner Signature (if applicable): CC: ~ Signed [facility] Work Phone: 1(252) 179-586605-06-[address] Bundy [facility] January 26, 2023 7:28am Note Date/Time January 26, 2023 7:28am [facility] Medical Records Department [address] [place] [address] Instructions for Home/Discharge Instructions 01/26/23726 MR#: [id number] Acct: [id number] Name: MARIEL QUINTEROS Rep #:[id number] : 2000 22 From: Ann-Marie Mckenzie DO PCP: Status:ADM IN Discharge Instructions Diet Discharge Diet: No restrictions Activity Discharge Activity: May Not Drive (for 2 weeks or while taking narcotic pain medications.), May Shower and May Take a Tub Bath (in 7 days.) May resume sexual activity in: 4-6 weeks Weight Bearing Status: Full weight bearing Lifting Restrictions: 20 pounds Dressing / Incision Call your doctor if your incision/area has: Continuous Slow Oozing, Sudden Increased Bleeding, Increased Pain/ Swelling, Increased Redness and Foul Smelling Discharge Call your doctor if you observe: Fever of 101 or Higher and Using more than 1 pad per hour Suture Line Care: Avoid Pulling/Pushing and Avoid Pinching/Bending Cleanse incision/area with: Soap & Water and Keep Dressing Clean & Dry Follow Up Care Please Follow Up With: Ann-Marie Mckenzie DO When: Call [phone] to make an appointment for an incision check in 1-2 weeks. Test Results: Test results from this visit will be discussed in further detail at your follow- up appointment, if applicable. Discharge Plan Admission Admit Date/Time: 01/26/23 05:10 Attending Provider: Ann-Marie Mckenzie Discharge Orders/Prescriptions Prescriptions: No Action DHA 200 mg capsule PO (DME) breast pump Device See Rx Instructions .MEDSUPPLY Qty: 1 0RF Rx Instructions: As directed 01/26/23 0728<Electronically signed by Ann-Marie Mckenzie DO>Ann-Marie Mckenzie DO CC: ~ Signed [facility] Work Phone: 1(625) 369-650605-06-2023 History and physical note Author Dr. Bundy [facility] January 26, 2023 5:52am Note Date/Time January 26, 2023 5:36am [facility] Medical Records Department [address] [place] [address] H&P Exam - WELLNESS NURSE RN 01/26/23 0530 MR#: [id number] Acct: [id number] Name: MARIEL QUINTEROS Rep #:[id number] : 2000 22 From: Ann-Marie Mckenzie DO PCP: Status:ADM IN Location: HW820-6 HPI - General General Date of Admission: 01/26/23 HPI Narrative MARIEL QUINTEROS, is a 22 y/o @ 41 weeks who presents to L&D via her mother, a laymidwife named Rosey Avila, after laboring at home for the last 48 hours. Her membranes ruptured at 7:30 am on 01/25/23 and she progressed to "anterior lip" andhas been pushing on the anterior lip for 5 hours at home. She denies fevers or chills at this time. She last ate an apple sauce "around dinner time" last night. Her mother states that at rupture there was light meconium stained fluid. The patient saw Dr. Shaw 2 times during the for co-care Maternal Data Information FELIPE Calculator Estimated Delivery Date Method Current WG Current Estimate 01/19/23 LMP (Certain) 41w 0d Final FELIPE: 01/19/23 Final FELIPE Source: LMP Gestational age: 41 [facility] Home Medications breast pump #1 ea 11/20/22 [Rx Last Taken Unknown] docosahexaenoic acid 200 mg capsule ( DHA) mg PO 11/20/22 [History Last Taken Unknown] Allergy/AdvReac Type Severity Reaction Status Date / Time No Known Allergies Allergy Verified 01/26/23 05:30 Surgical History H/O adenoidectomy Social History household members: spouse current occupational status: employed current occupational exposures/hazards: No sexually active: Yes Smoking Status: Never smoker alcohol intake: former substance use type: does not use seatbelt use: always do you feel safe at home: Yes additional social history: Spouse - Jesus (manufacturing engineer supervisor [employer]) History Elective abortions Hx Para 0 Spontaneous abortions Hx # Term Pregnancies Ectopic pregnancies Hx # Pregnancies Multiple births # of living children Visit Details Expected Delivery Route/Plan planning homebirth with Rosey Avila, declines lab testing, had anatomy US. gbs done. declined GCT. discussed BS testing OB Flowsheet Initial Weight: Not Recorded Date -?-?-?-?-?-?-?-?-?-?-?-?- EGA Weight BP Urine Prot -?-?-?-?-?-?-?-?-?-?-?-?- Glucose FHR FuHt Pres Dilation -?-?-?-?-?-?-?-?-?-?-?-?- Effaced St Visit Note 11/20/22 -?-?-?-?-?-?-?-?-?-?-?-?- 31w 3d 206 lb 6 oz 108/69 -?-?-?-?-?-?-?-?-?-?-?-?- 135 32 -?-?-?--?-?-?-?-?-?-?-?-?- - patient raul castro her mom Rosey Avila DEM for care, here to establish for cocare in case any additional help needed at delivery. patient had 15 week ultrasound at [facility] for gender and placenta is not previa. she 01/03/23 -?-?-?-?-?-?-?-?-?-?-?-?- 37w 5d 211 lb 2 oz 110/75 Nega tive -?-?-?-?-?-?-?-?-?-?-?-?- Negative 135 39 -?-?-?-?-?-?-?-?-?-?-?-?- Sm- no vb lof go od fm no regular ctx discussed home BS testing for evaluation ROS Constitutional Constitutional: Denies change in weight, fatigue, fever(s), headache(s), poor appetite or weakness Eyes Eyes: Denies blurry vision, change in vision, seeing flashes or spots in vision ENT HEENT: Denies dizziness, headache(s), loss taste/smell or sore throat Cardiovascular Cardiovascular: Denies chest pain, dizziness, dyspnea, irregular heart rhythm, leg edema, palpitations, rapid heart rate or vomiting Respiratory/Chest Respiratory/Chest: Denies chest tightness, cough, dyspnea or breast pain Gastrointestinal Gastrointestinal: Denies abdominal pain, anorexia, constipation, cramping, diarrhea, hemorrhoids, vomiting or weight changes Genitourinary Genitourinary: Denies dysuria, flank pain, genital lesions, genital pain, urinary frequency or urinary urgency Musculoskeletal Musculoskeletal: Denies back pain, difficulty walking, joint pain, limited rangeof motion, muscle cramps or numbness Integumentary Integumentary: Denies lesions or unusual bruising Neurologic Neurologic: Denies abnormal movements, abnormal speech, dizziness, numbness, seizure-like activity or syncope Psychiatric Psychiatric: Denies anxiety, behavioral changes, change in appetite, change in libido, cognitive impairment, confusion, depression, difficulty concentrating, hallucinations or suicidal thoughts Endocrine Endocrinology: Denies excessive sweating, polydipsia or polyuria Hematologic/Lymphatic Hematologic/Lymphatic: Denies easy bleeding, easy bruising or lymphadenopathy Allergic/Immunologic Allergic/Immunologic: Denies itchy eyes, lip swelling, seasonal rhinorrhea, rhinitis, throat swelling, tongue swelling, eczemia, wheezing or asthma Vital Signs Vital Signs Vital Signs: 01/26/23 05:26 01/26/23 05:26 01/26/23 05:26 Temperature Temperature Source Pulse Rate 110 H Blood Pressure 137/91 H BP Systolic 137 BP Diastolic 91 Pulse Ox 90 01/26/23 05:26 01/26/23 05:26 01/26/23 05:26 Temperature Temperature Source Temporal Pulse Rate 110 H Blood Pressure BP Systolic BP Diastolic Pulse Ox 96 01/26/23 05:26 Temperature 98.2 F Temperature Source Pulse Rate Blood Pressure BP Systolic BP Diastolic Pulse Ox Weight Weight: 206 lb 12.697 oz Body Mass Index (BMI) 35.4 Physical Exam Const alert, oriented x3, no apparent distress and healthy appearing General Appearance: cooperative; Negative for anxious HEENT normocephalic Face and Sinus: normal facial exam Eyes EOMs intact bilaterally and no scleral icterus General Eye: normal appearance of both eyes Neck full ROM and supple Lymph Lymphatic: no lymphadenopathy noted Chest Chest: abnormal inspection of the chest Resp normal respiratory effort Effort and Inspection: able to speak in complete sentences Cardio regular rate GI soft to palpation and non-tender Inspection: gravid Palpation: soft; Negative for tender external exam normal Narrative: Cx: 8 cm/80/+1 station. Back/Spine no CVA tenderness Extremity normal to inspection, full ROM and no clubbing, cyanosis or edema General Extremity: Negative for calf tenderness or edema Skin Lesions: no lesions Rashes: no rashes Psych mental status grossly normal Labs Labs Labs: Hct 34.5 % (37-47) L Hgb 11.4 g/dL (12.0-15.0) L Obstetrics US patient declined labs in the office. She collected her own blood sugarsfrom 37 weeks and were "normal" at home Assessment & Plan (1) Obesity affecting : COMMENT: reocmmend GCTscreening, patient declined but will check BS at home. (2) : QUALIFIERS: Weeks of gestation: 37 weeks Qualified Code(s): Z3A.37 - 37 weeks gestation of COMMENT: cocare with Rosey Austin- patients mother. planning home . cbc and home BS checks, declined rest of NOB labs. anatomy scan ordered. plan fu visit at 37- 38 weeks with gbs. plan growth US at 41 weeks with twice weekly NSTs if prolonged and IOL at 42 if postdates. 11/27 Nl growth US EFW 1974gms +/-296gms 44%. (3) Supervision of normal : COMMENT: FELIPE 01/19/23 Jesus PLAN: Plan Patient presents IAL, plan at this point is to obtain labs and if no signs of distress will allow epidural + pitocin for a few hours but technically shehas already met criteria for failure to progress at home and if any signs of chorioamnionitis present, will need to be sectioned. Pain management: plans epidural. GBS negative but will need abx for prolonged rupture of membranes . Management of any complications: none I have reviewed the [facility] and made any clinically relevant updates. addendum: white count 19, tracing is a category 2 for minimal variability and lac of decelerations after IV hydration and position change. She is having contractions q 2-3 minutes. Recommending primary section for failure to progress in labor. 01/26/23 0552 <Electronically signed by Ann-Marie Mckenzie DO> Cosigner Signature (if applicable): CC: Dr. Ann-Marie Mckenzie DO~ Signed [facility] Work Phone: [phone] 111-260405-06-2023 Procedure [facility] 01-11-2022 Telephone encounter Note* Telephone Encounter - Tessy Barreto LPN - 01/11/2022 10:49 AM EDT Patient notified of stool test results. Informed positive for c diff. Discussed antibiotic treatment for 14 days. Washing hands with soap and water, cleaning bathroom surfaces with bleach wipes. Discuss that can be spread. Patient verbalized understanding. Confirmed with [facility] in [place] that they have Vanco 125 mg capsules in stock. [id number] Miscellaneous Notes* Telephone Encounter - Tessy Barreto LPN - 01/11/2022 10:49 AM EDT Patient notified of stool test results. Informed positive for c diff. Discussed antibiotic treatment for 14 days. Washing hands with soap and water, cleaning bathroom surfaces with bleach wipes. Discuss that can be spread. Patient verbalized understanding. Confirmed with [facility] in [place] that they have Vanco 125 mg capsules in stock. * Telephone Encounter - Tessy Barreto LPN - 01/11/2022 10:41 AM EDT ----- Message from Galina Williamson DO sent at 01/11/2022 10:07 AM EDT ----- Positive for C Dif. Discussed washing hands with soap and water. This can be spread. Vancomycin 125mg po 4 times daily for 14 days. documented in this [id number] Telephone encounter Note* Telephone Encounter - Tessy Barreto LPN - 01/11/2022 10:41 AM EDT ----- Message from Galina Williamson DO sent at 01/11/2022 10:07 AM EDT ----- Positive for C Dif. Discussed washing hands with soap and water. This can be spread. Vancomycin 125mg po 4 times daily for 14 days. [id number] History of Present illness Narrative* Galina Williamson DO - 01/09/2022 3:37 PM EDT Subjective Pt here today for right otalgia x1 week. Denies pain today. Seeing chiro which helped inpast. C/o diarrhea x2-3 weeks, thought was dairy so cut that out but still occurring 2-3x day, described as watery. Patient ID: Mariel Quinteros is a 21 y.o. female. HPI Review of Systems Constitutional: Negative for chills and fever. HENT: Positive for ear pain. Negative for congestion. Eyes: Negative for visual disturbance. Respiratory: Negative for cough. Cardiovascular: Negative for chest pain. Gastrointestinal: Positive for diarrhea. Endocrine: Negative for polydipsia. Genitourinary: Negative for dysuria. Musculoskeletal: Negative for myalgias. Skin: Negative for rash. Allergic/Immunologic: Negative. Neurological: Negative for dizziness. Hematological: Negative for adenopathy. Psychiatric/Behavioral: Negative. Objective Physical Exam Vitals and nursing note reviewed. Constitutional: Appearance: Normal appearance. She is well-developed. HENT: Head: Normocephalic and atraumatic. Right Ear: External ear normal. Tympanic membrane is bulging. Left Ear: Tympanic membrane and external ear normal. Nose: No congestion. Mouth/Throat: Pharynx: No posterior oropharyngeal erythema. Eyes: Conjunctiva/sclera: Conjunctivae normal. Pupils: Pupils are equal, round, and reactive to light. Cardiovascular: Rate and Rhythm: Normal rate and regular rhythm. Heart sounds: Normal heart sounds. Pulmonary: Effort: Pulmonary effort is normal. Breath sounds: Normal breath sounds. No wheezing or rales. Abdominal: General: Bowel sounds are normal. Palpations: Abdomen is soft. Tenderness: There is no guarding or rebound. Musculoskeletal: General: No swelling or tenderness. Normal range of motion. Cervical back: Normal range of motion and neck supple. Skin: General: Skin is warm and dry. Findings: No erythema or rash. Neurological: Mental Status: She is alert and oriented to person, place, and time. Deep Tendon Reflexes: Reflexes are normal and symmetric. Psychiatric: Mood and Affect: Mood normal. Behavior: Behavior normal. Thought Content: Thought content normal. Assessment/Plan: Diagnoses and all orders for this visit: Acute otalgia, right Diarrhea, unspecified type - Stool/GI PCR Panel; Future Acute dysfunction of right eustachian tube She has had good luck with her eustachian tube dysfunction with chiropractor. She has appt scheduled. If she develops more pain or fever we can send in antibiotics. Stool study for diarrhea. Follow up prn. documented in this [id number] Instructions* Patient Instructions* Galina Williamson DO - 10/20/2021 1:58 PM EST Images from the original note were not included. Eustachian Tube Problems: Care Instructions Overview The eustachian (say "har-HWXL-mzox-un") tubes run between the inside of the ears and the throat. They keep air pressure stable in the ears. If your eustachian tubes become blocked, the air pressure in your ears changes. The fluids from a cold can clog eustachian tubes, causing pain in the ears. A quick change in air pressure can cause eustachian tubes to close up. This might happen when an airplane changes altitude or when a supplier diversity director goes up or down underwater. Eustachian tube problems often clear up on their own or after treating the cause of the blockage. If your tubes continue to be blocked, you may need surgery. Follow-up care is a burrows part of your treatment and safety. Be sure to make and go to all appointments, and call your doctor if you are having problems. It's also a good idea to know your test resultsand keep a list of the medicines you take. How can you care for yourself at home? Try a simple exercise to help open blocked tubes. Close your mouth, hold your nose, and gently blowas if you are blowing your nose. Yawning and chewing gum also may help. You may hear or feel a "pop" when the tubes open. To ease ear pain, apply a warm washcloth or a heating pad set on low. There may be some drainage from the ear when the heat melts earwax. Put a cloth between the heat source and your skin. If your doctor prescribed antibiotics, take them as directed. Do not stop taking them just because you feel better. You need to take the full course of antibiotics. Be safe with medicines. Depending on the cause of the problem, your doctor may recommend uhii-cnj-zocnhkn medicine. For example, adults may try decongestants for cold symptoms or nasal spray steroidsfor allergies. Follow the instructions carefully. Be careful with cough and cold medicines. Don't give them to children younger than 6, because they don't work for children that age and can even be harmful. For children 6 and older, always follow all the instructions carefully. Make sure you know how much medicine to give and how long to use it. And use the dosing device if one is included. When should you call for help? Call your doctor now or seek immediate medical care if: You develop sudden, complete hearing loss. You have severe pain or feel dizzy. You have new or increasing pus or blood draining from your ear. You have redness, swelling, or pain around or behind the ear. Watch closely for changes in your health, and be sure to contact your doctor if: You do not get better after 2 weeks. You have any new symptoms, such as itching or a feeling of fullness in the ear. Where can you learn more? Log into your personal health record on [email or web address] and enter Y822 in the "Education" box to learn more about "Eustachian Tube Problems: Care Instructions." Current as of: May 31, 2021 Content Version: 13.1 Secure Software. Care instructions adapted under license by your healthcare professional. If you have questions about a medical condition or this instruction, always ask your healthcare professional. [employer] disclaims any warranty or liability for your use of this information. documented in this [id number] History of Present illness Narrative* Galina Williamson DO - 10/20/2021 1:57 PM EST Subjective Pt here today for right otalgia intermittently. Patient ID: Mariel Quinteros is a 21 y.o. female. HPI Review of Systems Constitutional: Negative for chills and fever. HENT: Positive for ear pain. Negative for congestion. Eyes: Negative for visual disturbance. Respiratory: Negative for cough. Cardiovascular: Negative for chest pain. Gastrointestinal: Negative for abdominal pain. Endocrine: Negative for polydipsia. Genitourinary: Negative for dysuria. Musculoskeletal: Negative for myalgias. Skin: Negative for rash. Allergic/Immunologic: Negative. Neurological: Negative for dizziness. Hematological: Negative for adenopathy. Psychiatric/Behavioral: Negative. Objective Physical Exam Vitals and nursing note reviewed. Constitutional: Appearance: Normal appearance. She is well-developed and well-nourished. HENT: Head: Normocephalic and atraumatic. Right Ear: External ear normal. Tympanic membrane is bulging. Left Ear: Tympanic membrane and external ear normal. Ears: Comments: Dull TM right Nose: No congestion. Mouth/Throat: Pharynx: Posterior oropharyngeal erythema present. Eyes: Extraocular Movements: EOM normal. Conjunctiva/sclera: Conjunctivae normal. Pupils: Pupils are equal, round, and reactive to light. Cardiovascular: Rate and Rhythm: Normal rate and regular rhythm. Heart sounds: Normal heart sounds. No murmur heard. Pulmonary: Effort: Pulmonary effort is normal. Breath sounds: Normal breath sounds. No wheezing or rales. Chest: Chest wall: No tenderness. Abdominal: General: Bowel sounds are normal. Palpations: Abdomen is soft. Tenderness: There is no abdominal tenderness. There is no guarding or rebound. Musculoskeletal: General: No swelling or tenderness. Normal range of motion. Cervical back: Normal range of motion and neck supple. No tenderness. Lymphadenopathy: Cervical: No cervical adenopathy. Skin: General: Skin is warm and dry. Findings: No rash. Neurological: Mental Status: She is alert and oriented to person, place, and time. Deep Tendon Reflexes: Reflexes are normal and symmetric. Psychiatric: Mood and Affect: Mood normal. Behavior: Behavior normal. Thought Content: Thought content normal. Assessment/Plan: Diagnoses and all orders for this visit: Eustachian tube dysfunction, right - cephALEXin (KEFLEX) 500 MG capsule; Take 1 (one) capsule (500 mg total) by mouth 3 (three) times a day for 10 days . For any new medications prescribed today, patient was educated about indications for the medication, how to take the medication and potential side effects of the medications. Follow up PRN * Galina Williamson DO - 10/20/2021 1:56 PM EST Depression Screening 10/20/2021 Little interest or pleasure in doing things 0 Feeling down, depressed, or hopeless 0 PHQ-2 Total Score 0 documented in this encounterOhioHealthEvaluation note* Diagnosis Eustachian tube dysfunction, right- Primary [facility]* Diagnosis Acute otalgia, right- Primary Diarrhea, unspecified type Acute dysfunction of right eustachian tube [facility]* Diagnosis Onset Date Resolution Status acute Supervision of normal [facility] Work Phone: Evaluation note* Diagnosis Onset Date Resolution Status Obesity affecting acute acute Supervision of normal acute Obesity affecting acute acute Supervision of normal [facility] Work Phone: Evaluation note* Diagnosis Onset Date Resolution Status Obesity affecting acute acute Supervision of normal acute Obesity affecting acute acute Supervision of normal acute Failure to progress in labor acute Obesity affecting acute acute Status post section acute Supervision of normal [facility] Work Phone: Evaluation note* Diagnosis Onset Date Resolution Status Obesity affecting resolved resolved Supervision of normal resolved Obesity affecting resolved resolved Supervision of normal resolved Status post section acute Failure to progress in labor resolved Obesity affecting resolved resolved Supervision of normal resolved [facility] Work Phone: Evaluation note* Diagnosis Onset Date Resolution Status Obesity affecting resolved resolved Supervision of normal resolved Obesity affecting resolved resolved Supervision of normal resolved Status post section acute Failure to progress in labor resolved Obesity affecting resolved resolved Supervision of normal resolved Status post section acute Postop check noneactive Status post section acute [facility] Work Phone: Evaluation note* Diagnosis Onychomycosis- Primary Dermatophytosis of nail [facility]* Diagnosis Onset Date Resolution Status Admit Date History of acute March 23, 2025 2:23pm Obesity affecting acute March 23, 2025 2:23pm acute March 23, 2025 2:23pm Status post section acute March 23, 2025 2:23pm Supervision of high-risk a cute March 23, 2025 2:23pm [place] teeth removed acute March 23, 2025 2:23pm [facility] Work Phone: Instructions* Attachments The following attachments cannot be sent through Care Everywhere. * Eustachian Tube Problems (Tajik) documented in this encounterOhioHealthInstructions* Attachments The following attachments cannot be sent through Care Everywhere. * Onychomycosis (Tajik) documented in this encounterOhioHealthProgress note Author Ann-Marie Bundy [facility] Note Date/Time April 21, 2025 1:58 pm [facility] [address] [place] [address], [address] [place] [address] OFFICE VISIT Date of Service: 04/21/25 MR#: [id number] Acct: [id number] Name: MARIEL QUINTEROS Rep #: [id number] : 2000 Provider: Dr. Virginia Mckenzie DO Age/Sex: 24/F [place] [facility] [place]: Signed Intake Vital Signs 03/12/23 10:23 03/23/25 14:31 04/21/25 13:43 04/21/25 13:44 Height 5 ft 4 in 5 ft 4 in 5 ft 4 in 5 ft 4 in Weight: 204 lb 2 oz BMI 35.0 BP 117/75 Intake Visit Reasons: 17wk OB *co-care Sandwich Artist Required: No Is patient in pain?: No Allergies No Known Allergies Allergy (Verified 04/21/25 13:43) Medications ?Medication ?Instructions ?Recorded ?Confirmed ?Type docosahexaenoic acid 200 mg mg PO 11/20/22 04/21/25 Hi story capsule ( DHA) calcium 1,000 mg (citrate)-vit D3 ml PO 03/22/2504/21 History 10 mcg (400 unit)/30 mL oral liquid magnesium 200 mg tablet 200 mg PO QDAY 03/22/2503/25 History progesterone 50 mg/mL 5 mg IM QDAY 03/22/25 History intramuscular oil pyridoxine (vitamin B6) 25 mg 25 mg PO QDAY 03/22/25 0 04/21/25 History tablet Last Menstrual Period: 09/25/25 Zika: Zika virus screening: Negative : No PFSH PFSH Surgical History H/O adenoidectomy Social History adopted: No household members: spouse and children housing: house number of children: 1 current occupational status: employed 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[employer] current occupational exposures/hazards: No pets and animals: Yes pets and animals: dog(s) history of recent travel: No sexually active: Yes Smoking Status: Never smoker alcohol intake: former details: not while substance use type: does not use caffeine: Yes Type: coffee what type of physical activity do you participate in: walking frequency: 3-4 times per week oj/congregational: Presybeterian seatbelt use: always do you feel safe at home: Yes additional social history: 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 Date Name GA/Weeks Outcome Route Bth Weight [facility] Robyn 41 live - full term 8lbs 5oz Fema le 48hrs @ home, 5hrs pushing spinal WC SM Jesus Delivery Date: 01/26/23 Last Updated by: Violeta Chávez laboring at home for 48 hrs. pushed x 5 hours HPI 17wk OB *co-care Details: MARIEL QUINTEROS is a 24 year old who presents for routine OB visit. OB Visit FELIPE Calculator Estimated Delivery Date Method Current WG Current Estimate 09/25/25 LMP (Certain) 17w 4d Expected Delivery Route/Plan patient counseled regarding risks/benefits of trial of labor versus repeat . ACOG/uptodate education given to patient. 45 % likelihood of success per calculator TOLAC consent form signed: [] Specific Issue/Plans Covid status: [] Flu vaccine: [] Tdap vaccine: [] Rhogam: [] LARC form signed: [] Problem list reviewed and updated with the most current plan of care details and appropriate orders placed. Relevant counseling for the gestational age provided. Continue routine care and follow up unless otherwise noted in visit notes/problem list details Initial Weight: Not Recorded Date -?-?-?-?-?-?-?-?-?-?-?-?- EGA Weight BP Urine Prot -?-?-?-?-?-?-?-?-?-?-?-?- Glucose FHR FuHt Pres Dilation -?-?-?-?-?-?-?-?-?-?-?-?- Effaced St Visit Note 03/23/25 -?-?-?-?-?-?-?-?-?-?-?-?- 13w 3d 205 lb 110/69 -?-?-?-?-?-?-?-?-?-?-?-?- 155 -?-?-?-?-?-?-?-?-?-?-?-?- JV- CRL consiste nt with LMP. pt was a primary section- labored at home and came in after pushing for 5 hours and thick mec. Wants to . 04/21/25 -?-?-?-?-?-?-?-?-?-?-?-?- 17w 4d 204 lb 2 oz 117/75 Nega tive -?-?-?-?-?-?-?-?-?-?-?-?- Negative 151 -?-?-?-?-?-?-?-?-?-?-?-?- JV- no lof, vagi nal bleeding, or cramping. has some allergy symptoms. plans to find out the gender at the anatomy scan from [facility] 05/20. ACOG First Trimester First Trimester: Desire for , Alcohol, Tobacco Cessation, Illicit/Recreational Drug/Substance Use, Intimate Partner Violence, Barriers to care, Unstable Housing, Communication Barriers, Environmental/Work Hazards, Anticipated Course of Care, Toxoplasmosis Precations, Use of Any medications, Sexual activity, Exercise, Dental Care, Sauna/Hot tub use, Seat Belt use, Childbirth classes/Hospital facilities, Travel, Indications for Ultrasound and Screening for Aneuploidy; Discussed Results POC Urinalysis 2 Dip (Clinic) Office Urine Glucose Negative Last Edit by Violeta Chávez on 04/21/25 13: 54 Office Urine Protein Negative Last Edit by Violeta Chávez on 04/21/25 13: 54 Coding Level of Care Code OB Routine Diagnoses Obesity affecting O99.210 Supervision of high-risk O09.90 17 weeks gestation of Z3A.17 Weeks of gestation: 17 weeks History of Z98.891 [place] teeth removed K08.409 Status post section Z98.891 Assessment and Plan Assessment and Plan (1) Obesity affecting : Status: Acute (2) Supervision of high-risk : Status: Acute Comment: , FELIPE 09/25/25, ROSIBEL Carlson Spouse Jesus (3) : Status: Acute Qualifiers: Weeks of gestation: 17 weeks Qualified Code(s): Z3A.17 - 17 weeks gestation of Comment: cocare Pt, NIPT w gender/carrier- declines (4) History of : Status: Acute Comment: 2022, interested in for current - chance of success is 45% (5) [place] teeth removed: Status: Acute Comment: 2022 (6) Status post section: Status: Acute Comment: PC/S "Robyn" per JV 01/26/23 Labored with it generalist at home X 48 hr. Pushed for 5 hr. Meconium Orders: Orders POC Urinalysis 2 Dip (Clinic) Today 04/21/25 8624 <Electronically signed by Ann-Marie Gallegos DO> Date _ Ann-Marie Mckenzie DO Cosigner Signature: Date (if applicable) CC: ~ [facility] Work Phone: Reason for referral (narrative)No reason for referral information availableChino Valley Medical Center Work Phone: Assessments Diagnosis DUB (dysfunctional uterine bleeding) Other disorder of menstruation and other abnormal bleeding from female genital tract Summary Purpose Family History No Family History Records FoundNo Family History Records FoundNo Family History Records FoundNo Family History Records FoundNo Family History Records Found Advance Directives No Advanced Directives Records FoundDocuments on File Type Date Recorded 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 Advance Directives and Living Will Documents on File Type Date Recorded 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 Advance Directives and Livin g Will 01/09/2022 3:19 PM Advance Directive Response Recorded Date/ Time Living Will No January 26, 2023 5: 35am Power of Unit Technician No January 26, 2023 5:35am Chief Complaint and Reason for Visit Chief Complaint it generalist pt due in Ap ril, Ok to see per SM Reason for Visit Supervision of normal Chief Complaint it generalist pt due in Ap ril, Ok to see per SM ANATOMY 37 WK OB Reason for Visit Obesity affecting pr egnancy Supervision of normal Obesity affecting Supervision of normal Chief Complaint it generalist pt due in Ap ril, Ok to see per SM ANATOMY 37 WK OB PRIMARY C SECTION LABOR PRIMARY C SECTION Reason for Visit Obesity affecting pr egnancy Supervision of normal Obesity affecting Supervision of normal Failure to progress in labor Obesity affecting Status post section Supervision of normal Chief Complaint it generalist pt due in Ap ril, Ok to see per SM ANATOMY 37 WK OB PRIMARY C SECTION LABOR PRIMARY C SECTION Reason for Visit Obesity affecting pr egnancy Supervision of normal Obesity affecting Supervision of normal Status post section Failure to progress in labor Obesity affecting Supervision of normal Chief Complaint it generalist pt due in Ap ril, Ok to see per SM ANATOMY 37 WK OB PRIMARY C SECTION LABOR PRIMARY C SECTION INCISION CHECK 6 WK PP Encounter for screening for malignant neoplasm of Reason for Visit Obesity affecting pr egnancy Supervision of normal Obesity affecting Supervision of normal Status post section Failure to progress in labor Obesity affecting Supervision of normal Status post section Postop check Status post section cutter Complaint Admit Date New OB, LMP 3.29, Co-care March 23, 2025 2:23pm Reason for Visit Admit Date History of March 23, 2025 2:23 pm Obesity affecting March 23 2:23pm March 23, 2025 2:23p m Status post section March 23 025 2:23pm Supervision of high-risk March 23, 2025 2:23pm [place] teeth removed March 23, 2025 2:23 pm Chief Complaint Admit Date New OB, LMP 3.29, Co-care March 23, 2025 2:23pm 17wk OB *co-care April 21, 2025 1:41 pm Reason for Visit Admit Date History of March 23, 2025 2:23 pm Obesity affecting March 23 2:23pm March 23, 2025 2:23p m Status post section March 23 2 025 2:23pm Supervision of high-risk March 23, 2025 2:23pm [place] teeth removed March 23, 2025 2:23 pm History of April 21, 2025 1:4 1pm Obesity affecting April 21, 025 1:41pm April 21, 2025 1:41 pm Status post section April 21, 2025 1:41pm Supervision of high-risk April 21, 2025 1:41pm [place] teeth removed April 21, 2025 1:4 1pm Chief Complaint Admit Date New OB, LMP 3.29, Co-care March 23, 2025 2:23pm 17wk OB *co-care April 21, 2025 1:41 pm 22wk OB *reschedule* - Co-care May 31, 2025 11:22am Reason for Visit Admit Date History of March 23, 2025 2:23 pm Obesity affecting March 23 2:23pm March 23, 2025 2:23p m Status post section March 23 025 2:23pm Supervision of high-risk March 23, 2025 2:23pm [place] teeth removed March 23, 2025 2:23 pm History of April 21, 2025 1:4 1pm Obesity affecting April 21 025 1:41pm April 21, 2025 1:41 pm Status post section April 21, 2025 1:41pm Supervision of high-risk April 21, 2025 1:41pm [place] teeth removed April 21, 2025 1:4 1pm History of May 31, 2025 11:22am Obesity affecting May 11:22am May 31, 2025 11:22am Status post section May [id number] 11:22am Supervision of high-risk Septe [email or web address] 11:22am [place] teeth removed May 31, 2025 11:22am Chief Complaint Admit Date New OB, LMP 3.29, Co-care March 23, 2025 2:23pm 17wk OB *co-care April 21, 2025 1:41 pm [id number] *reschedule* - Co-care May 31, 2025 11:22am 28 WK 5D OB *co-care *Moved from 06/28 pe r pt July 08, 2025 1:54pm Reason for Visit Admit Date History of March 23, 2025 2:23 pm Obesity affecting March 23 2:23pm March 23, 2025 2:23p m Status post section March 23, 2 025 2:23pm Supervision of high-risk March 23, 2025 2:23pm [place] teeth removed March 23, 2025 2:23 pm History of April 21, 2025 1:4 1pm Obesity affecting April 21, 2 025 1:41pm April 21, 2025 1:41 pm Status post section April 21, 2025 1:41pm Supervision of high-risk April 21, 2025 1:41pm [place] teeth removed April 21, 2025 1:4 1pm History of May 31, 2025 11:22am Obesity affecting May 11:22am May 31, 2025 11:22am Status post section May [id number] 11:22am Supervision of high-risk Septe mber 2024 11:22am [place] teeth removed May 31, 2025 11:22am History of July 08, 2025 1:54pm Obesity affecting June 1:54pm July 08, 2025 1 :54pm Status post section June 1:54pm Supervision of high-risk Octob er 2024 1:54pm [place] teeth removed July 08, 2025 1:54pm Additional Source Comments INFORMATION SOURCE (unrecogn ized section and content) DATE CREATED AUTHOR 12/13/2020 [facility] DATE CREATED AUTHOR AUTHOR'S ORGANIZ ATION 01/11/2022 [facility] DATE CREATED AUTHOR AUTHOR'S ORGANIZ ATION 01/15/2022 [facility] DATE CREATED AUTHOR AUTHOR'S ORGANIZ ATION 06/05/2025 [facility] DATE CREATED AUTHOR AUTHOR'S ORGANIZ ATION 08/04/2025 [facility] Reason for Visit (unrecogniz ed section and content) Reason Comments Otalgia Right off and on for several months. Reason Comments Otalgia Right x 1 week Diarrhea X 2-3 weeks worse wi th dairy products but has cut this out of her diet and is still having diarrhea Reason Comments Nail Problem Care Teams (unrecognized sec tion and content) Sr. Manager Relationship Specialty Start Date End Date Galina Williamson DO [address] [place] [address] PCP - General Family Medicine 11/27/16 Sr. Manager Relationship Specialty Start Date End Date Galina Williamson DO [address] [place] [address] PCP - General Family Medicine 11/27/16 Team Status: Active Member Role Status Dates No Primary Care Physician Primary Care Provider Active Team Status: Inactive Member Role Status Dates No Primary Care Physician Primary Care Provider, Refer ring Provider Active Dr. Celeste Shaw MD Attending Provider Active Team Status: Inactive Member Role Status Dates No Primary Care Physician Primary Care Provider Active Dr. Celeste Shaw MD Attending Provider, Referr ing Provider Active Team Status: Inactive Member Role Status Dates No Primary Care Physician Referring Provider Active Dr. Celeste Shaw MD Attending Provider Active CLAY MEYER Primary Care Provider Active Team Status: Inactive Member Role Status Dates Dr. Celeste Shaw MD Attending Provider Active CLAY MEYER Primary Care Provider Active Team Status: Inactive Member Role Status Dates Dr. Celeste Shaw MD Attending Provider, Referr ing Provider Active Team Status: Active Member Role Status Dates Dr. Ann-Marie Mckenzie DO Admit Prov ider, Attending Provider, Other Provider Active Team Status: Inactive Member Role Status Dates Dr. Ann-Marie Mckenzie DO Admit Provider, Attendin g Provider Active Team Status: Inactive Member Role Status Dates Dr. Mo Carrera MD Attending Provider, Referring Provider Active Team Status: Inactive Member Role Status Dates Gifty Bernstein S[employer]IOR CONSTRUCTION PROJECT MANAGER, SENIOR CONSTRUCTION PROJECT MANAGER-C Attending Provider Active Team Status: Inactive Member Role Status Dates Dr. Ann-Marie Mckenzie DO Attending Provider Activ e Team Status: Inactive Member Role Status Dates No Primary Care Physician Primary Care Provider Active Dr. Ann-Marie Mckenzie DO Attending Provider, Refe rring Provider Active Sr. Manager Relationship Specialty Start Date End Date Galina Williamson DO [address] [place] [address] PCP - General Family Medicine 11/27/16 Team Status: Active Member Role/Relationship Status Dates No Primary Care Physician Primary Care Provider Active Team Status: Inactive Member Role/Relationship Status Dates No Primary Care Physician Primary Care Provider Active Start: March 23, 2025 End: March 23, 2025 No Primary Care Physician Referring Provider Active Start: March 23, 2025 End: March 23, 2025 Dr. Ann-Marie Mckenzie DO Attending Provider Activ e Start: March 23, 2025 End: March 23, 2025 Team Status: Active Member Role/Relationship Status Dates No Primary Care Physician Primary Care Provider Active Start: March 23, 2025 Dr. Ann-Marie Mckenzie DO Attending Provider Activ e Start: March 23, 2025 Dr. Ann-Marie Mckenzie DO Referring Provider Activ e Start: March 23, 2025 Team Status: Inactive Member Role/Relationship Status Dates No Primary Care Physician Primary Care Provider Active Start: March 23, 2025 End: March 23, 2025 Dr. Ann-Marie Mckenzie DO Attending Provider Activ e Start: March 23, 2025 End: March 23, 2025 Dr. Ann-Marie Mckenzie DO Referring Provider Activ e Start: March 23, 2025 End: March 23, 2025 Team Status: Inactive Member Role/Relationship Status Dates No Primary Care Physician Primary Care Provider Active Start: April 21, 2025 End: April 21, 2025 No Primary Care Physician Referring Provider Active Start: April 21, 2025 End: April 21, 2025 Dr. Ann-Marie Mckenzie DO Attending Provider Activ e Start: April 21, 2025 End: April 21, 2025 Team Status: Inactive Member Role/Relationship Status Dates No Primary Care Physician Primary Care Provider Active Start: May 31, 2025 End: May 31, 2025 No Primary Care Physician Referring Provider Active Start: May 31, 2025 End: May 31, 2025 Dr. Celeste Shaw MD Attending Provider Active Start: May 31, 2025 End: May 31, 2025 Team Status: Active Member Role/Relationship Status Dates No Primary Care Physician Primary care physician Activ e Team Status: Inactive Member Role/Relationship Status Dates No Primary Care Physician Primary care physician Activ e Start: March 23, 2025 End: March 23, 2025 No Primary Care Physician Referring Provider Active Start: March 23, 2025 End: March 23, 2025 Dr. Ann-Marie Mckenzie DO Attending physician Acti ve Start: March 23, 2025 End: March 23, 2025 Team Status: Inactive Member Role/Relationship Status Dates No Primary Care Physician Primary care physician Activ e Start: March 23, 2025 End: March 23, 2025 Dr. Ann-Marie Mckenzie DO Attending physician Acti ve Start: March 23, 2025 End: March 23, 2025 Dr. Ann-Marie Mckenzie DO Referring Provider Activ e Start: March 23, 2025 End: March 23, 2025 Team Status: Inactive Member Role/Relationship Status Dates No Primary Care Physician Primary care physician Activ e Start: April 21, 2025 End: April 21, 2025 No Primary Care Physician Referring Provider Active Start: April 21, 2025 End: April 21, 2025 Dr. Ann-Marie Mckenzie DO Attending physician Acti ve Start: April 21, 2025 End: April 21, 2025 Team Status: Inactive Member Role/Relationship Status Dates No Primary Care Physician Primary care physician Activ e Start: May 31, 2025 End: May 31, 2025 No Primary Care Physician Referring Provider Active Start: May 31, 2025 End: May 31, 2025 Dr. Celeste Shaw MD Attending physician Active Start: May 31, 2025 End: May 31, 2025 Team Status: Inactive Member Role/Relationship Status Dates No Primary Care Physician Primary care physician Activ e Start: July 08, 2025 End: July 08, 2025 No Primary Care Physician Referring Provider Active Start: July 08, 2025 End: July 08, 2025 Dr. Ann-Marie Mckenzie DO Attending physician Acti ve Start: July 08, 2025 End: July 08, 2025 Goals (unrecognized section and content) Type Care Experience planning homebirth w ith Rosey Avila, declines lab testing, had anatomy US. gbs done. declined GCT. discussed BS testing Care Experience desires TOLAC- patie nt having cocare with Rosey Austin for visits, epxlained that if she is planning a she needs to plan to have a hospital with us. we do not reocmmend or approve a home this is not considered a safe venue especially because she is 90 minutes away from our hospital and she has a lower chance of a successful TOLAC. I discussed the risks of permanent neurologic injury, hemorrhage, hysterectomy, and loss of life. patient to decide if she wishes to continue cocarepatient counseled regarding risks/benefits of trial of labor versus repeat . ACOG/uptodate education given to patient. 45 % likelihood of success per calculator, but may be as low as 10% becuase she was complete an pushed for five hours with no success.TOLAC consent form signed: [] FOR RECORDS PERTAINING TO PATIENTS WHO ARE OR HAVE BEEN ENROLLED IN A CHEMICAL DEPENDENCY/SUBSTANCEABUSE PROGRAM, SOME INFORMATION MAY BE OMITTED. This clinical summary was aggregated from multiple sources. Caution should be exercised in using it in the provision of clinical care. This summary normalizes information from multiple sources, and as a consequence, information in this document may materially change the coding, format and clinical context of patient data. In addition, data may be omitted in some cases. CLINICAL DECISIONS SHOULD BE BASED ON THE PRIMARY CLINICAL RECORDS. [facility] [email or web address] provides no warranty or guarantee of the accuracy or completeness of information in this document.
== END | disposition home or self-care (01) ==
LOC: BWCLAB 13:43
PROVIDERS: Obstetrics & Gynecology; Visit Provider Student in an Organized Health Care Education/Training Program
DX: O09.90 Supervision of high risk pregnancy, unspecified, unspecified trimester (principal); Z3A.00 Weeks of gestation of pregnancy not specified
CPT/HCPCS: 36415; 85025; 86703; 86780

== ENCOUNTER → 2025-08-30 | Outpatient (CLI) | payer BC, SELFPAY ==
--- NOTE | 2025-08-30 12:28 | US_ITS ---
PROCEDURE: OB LIMITED WITH BIOMETRICS 08/30/2025 REASON FOR EXAM: GROWTH SCAN TECHNIQUE: Procedure Code: [id number] Modality: US Procedure: OB LIMITED WITH BIOMETRICS COMPARISON: 11/27/2022 FINDINGS Cephalic position with cardiac activity of 132 bpm. Maximum vertical pocket of 5.6 cm and RANDI of 17.9 cm. Placenta is fundal position with grade 2. BPD of 9.4, OFD of the 12.1, HC of 34, AC of 35.6, and FL of 6.7 cm corresponding with average gestational age of 38 weeks and 0 days with FELIPE of 09/13/2025. Biometric measurement are within normal limits. Estimated weight of 3426g (92.2 percentile). US/OB Limited With Biometrics IMPRESSION: Sonographic gestational age of 38 weeks and 0 days with FELIPE of 09/13/2025. Reading Location: [id number]
== END | disposition home or self-care (01) ==
LOC: US 12:25
PROVIDERS: Referring Provider Advanced Practice Midwife; Visit Provider Advanced Practice Midwife
DX: O99.210 Obesity complicating pregnancy, unspecified trimester (principal); Z3A.00 Weeks of gestation of pregnancy not specified; O09.93 Supervision of high risk pregnancy, unspecified, third trimester
CPT/HCPCS: 76816; 87081